=== PATIENT | female | born 1955 | race Caucasian/White ===

== ENCOUNTER 2020-01-12 22:02 | Emergency (ER) | payer MEDICARE, MEDICAID ==
[~2020-01-12] VITALS: Ht 162.6 cm; Wt 100.0 kg
[~2020-01-12 22:02] MED LIST: ASPI-728 PO; BENZ1TAB10 PO; BUPR-93 PO; GABA-531 PO; GLIP5 PO; METF-960 PO; RISP3 PO; ROSU10TA22 PO; TOPI100T37 PO; TRAZ-257 PO
[2020-01-12] MEDS ORDERED: METO25 PO (22:41)
[2020-01-12] MEDS ORDERED: DIPH25TA20 PO (22:41)
[2020-01-12] MEDS ORDERED: CHOL100018 PO (22:41)
[2020-01-12] MEDS ORDERED: INSLAN SQ (22:41)
[2020-01-12] MEDS ORDERED: LISI-660 PO (22:41)
[2020-01-12] MEDS ORDERED: CLON.5 PO (22:41)
[2020-01-12] MEDS ORDERED: OLAN5TAB2 IM (22:41)
[2020-01-12] MEDS ORDERED: TRAZ-257 PO (22:41)
[2020-01-12] MEDS ORDERED: RISP3 PO (22:41)
[2020-01-12] MEDS ORDERED: BUSP10TA23 PO (22:41)
[2020-01-12] MEDS ORDERED: ATOR10TA84 PO (22:41)
[2020-01-12 23:39] LABS: BASOPHILS % (AUTO) 0.4 % (0.0-2.0); EOSINOPHILS % (AUTO) 0.6 % (1.0-6.0); HEMATOCRIT 39.7 % (36-46); HEMOGLOBIN 12.9 g/dL (12.0-16.0); LYMPHOCYTES # (AUTO) 1.2 K/uL (1.0-4.8); LYMPHOCYTES % (AUTO) 14.8 % (22.0-44.0); MEAN CORPUSCULAR HEMOGLOBIN 27.4 pg (26.0-34.0); MEAN CORPUSCULAR HGB CONC 32.4 G/dL (31.0-37.0); MEAN CORPUSCULAR VOLUME 85 fL (80-100); MONOCYTES # (AUTO) 0.6 K/uL (0.1-1.0); NEUTROPHILS % (AUTO) 76.2 % (40.0-70.0); PLATELET COUNT (AUTO) 236 K/uL (150-450); RED CELL DISTRIBUTION WIDTH 14.5 % (11.5-14.5)
[2020-01-12 23:52] LABS: ANION GAP 12 mmol/L (8-16); CALCIUM, TOTAL 8.4 mg/dL (8.8-10.5); CARBON DIOXIDE 23 mmol/L (22-29); CHLORIDE 104 mmol/L (98-107); CREATININE 0.72 mg/dL (0.60-1.30); GLOMERULAR FILTR. RATE CALC > 60 mL/min (>60); GLUCOSE,RANDOM 199 mg/dL (70-110); POTASSIUM 3.7 mmol/L (3.5-5.1); SODIUM SERUM 139 mmol/L (136-145); UREA NITROGEN, BLOOD 11 mg/dL (7-18)
[2020-01-13 00:01] LABS: ALANINE AMINOTRANSFERASE 18 U/L (12-78); ALBUMIN 3.5 g/dL (3.4-5.0); ALKALINE PHOSPHATASE 112 U/L (46-116); ASPARTATE AMINOTRANSFERASE 12 U/L (15-37); BILIRUBIN,TOTAL 0.3 mg/dL (0.1-1.0); TOTAL PROTEIN, SERUM 6.6 g/dL (6.4-8.2)
[2020-01-13 00:56] LABS: APPEARANCE,URINE CLOUDY (CLEAR); GLUCOSE, URINE (UA) NEGATIVE (NEGATIVE); KETONES,URINE >=80 mg/dL (NEGATIVE); LEUKOCYTE ESTERASE ,URINE TRACE (NEGATIVE); NITRATE,URINE NEGATIVE (NEGATIVE); OCCULT BLOOD,URINE NEGATIVE (NEGATIVE); PROTEIN,URINE NEGATIVE (NEGATIVE); UROBILINOGEN,URINE 0.2 mg/dL (<=1.0)
[2020-01-13 00:59] LABS: BILIRUBIN,URINE PRELIM. POSITIVE (NEGATIVE)
[2020-01-13 01:01] LABS: AMPHET/METH SCREEN,URINE NEGATIVE (NEGATIVE); BARBITURATE SCREEN, URINE NEGATIVE (NEGATIVE); BENZODIAZEPINES SCREEN,URINE NEGATIVE (NEGATIVE); CANNABINOID SCREEN,URINE NEGATIVE (NEGATIVE); COCAINE SCREEN,URINE NEGATIVE (NEGATIVE); METHADONE SCREEN, URINE NEGATIVE (NEGATIVE); OPIATE SCREEN,URINE NEGATIVE (NEGATIVE)
[2020-01-13 01:03] LABS: PHENCYCLIDINE SCREEN,URINE NEGATIVE (NEGATIVE)
[2020-01-13 01:11] LABS: BACTERIA,URINE Few /HPF (None Seen); RBC,URINE None Seen /HPF (0-2); SQUAMOUS EPITHELIAL CELL,UR Few /LPF (None Seen); WBC,URINE 0-2 /HPF (0-5); YEAST,URINE None Seen /HPF (None Seen)
[2020-01-13 01:40] VITALS: BP 154/84
[2020-01-13] MEDS ORDERED: LORazepam 2 MG TABLET PO ONE (02:00)
== END 2020-01-13 02:25 | disposition home or self-care (01) ==
LOC: EMS 22:07
DX: F25.9 Schizoaffective disorder, unspecified (principal); F17.210 Nicotine dependence, cigarettes, uncomplicated; F31.9 Bipolar disorder, unspecified; E11.9 Type 2 diabetes mellitus without complications; I10 Essential (primary) hypertension; Z91.018 Allergy to other foods; Z79.84 Long term (current) use of oral hypoglycemic drugs; Z79.899 Other long term (current) drug therapy
CPT/HCPCS: 36415; 80053; 80307; 81001; 85025; 99284; G0480

== ENCOUNTER 2020-01-14 15:43 | Inpatient (IN) | payer MEDICARE, MEDICAID ==
[~2020-01-14] VITALS: Ht 160 cm; Wt 105.3 kg
[~2020-01-14 15:43] MED LIST changes: +ATOR10TA84 PO; +BUSP10TA23 PO; +CHOL100018 PO; +CLON.5 PO; +DIPH25TA20 PO; +GABA-1181 PO; -GABA-531 PO; +INSLAN SQ; +LISI-660 PO; +METO25 PO; +OLAN5TAB2 PO
[2020-01-14] MEDS ORDERED: LORazepam 2 MG/ML VIAL IM ONE (16:30)
[2020-01-14 16:37] LABS: BASOPHILS % (AUTO) 0.5 % (0.0-2.0); EOSINOPHILS % (AUTO) 0.7 % (1.0-6.0); HEMATOCRIT 41.3 % (36-46); HEMOGLOBIN 13.3 g/dL (12.0-16.0); LYMPHOCYTES # (AUTO) 1.1 K/uL (1.0-4.8); MEAN CORPUSCULAR HEMOGLOBIN 27.2 pg (26.0-34.0); MEAN CORPUSCULAR HGB CONC 32.3 G/dL (31.0-37.0); MEAN CORPUSCULAR VOLUME 84 fL (80-100); MONOCYTES # (AUTO) 0.5 K/uL (0.1-1.0); MONOCYTES % (AUTO) 6.5 % (2.0-9.0); NEUTROPHILS # (AUTO) 6.3 K/uL (1.8-7.7); NEUTROPHILS % (AUTO) 78.3 % (40.0-70.0); PLATELET COUNT (AUTO) 254 K/uL (150-450); RED BLOOD CELL COUNT(AUTO) 4.91 MIL/uL (4.00-5.20); RED CELL DISTRIBUTION WIDTH 15.1 % (11.5-14.5)
[2020-01-14 16:46] LABS: ANION GAP 10 mmol/L (8-16); CALCIUM, TOTAL 9.2 mg/dL (8.8-10.5); CARBON DIOXIDE 26 mmol/L (22-29); CHLORIDE 102 mmol/L (98-107); CREATININE 0.84 mg/dL (0.60-1.30); GLOMERULAR FILTR. RATE CALC > 60 mL/min (>60); GLUCOSE,RANDOM 203 mg/dL (70-110); POTASSIUM 4.1 mmol/L (3.5-5.1); SODIUM SERUM 138 mmol/L (136-145); UREA NITROGEN, BLOOD 14 mg/dL (7-18)
[2020-01-14 16:51] LABS: ALANINE AMINOTRANSFERASE 19 U/L (12-78); ALBUMIN 3.5 g/dL (3.4-5.0); ALKALINE PHOSPHATASE 119 U/L (46-116); ASPARTATE AMINOTRANSFERASE 10 U/L (15-37); BILIRUBIN,TOTAL 0.3 mg/dL (0.1-1.0); TOTAL PROTEIN, SERUM 6.6 g/dL (6.4-8.2)
[2020-01-14] MEDS ORDERED: TraZODone HCL 50 MG TABLET PO ONE (17:45)
[2020-01-14 19:47] LABS: APPEARANCE,URINE CLEAR (CLEAR); BILIRUBIN,URINE NEGATIVE (NEGATIVE); GLUCOSE, URINE (UA) NEGATIVE (NEGATIVE); KETONES,URINE >=80 mg/dL (NEGATIVE); LEUKOCYTE ESTERASE ,URINE SMALL (NEGATIVE); NITRATE,URINE NEGATIVE (NEGATIVE); OCCULT BLOOD,URINE NEGATIVE (NEGATIVE); PH,URINE 5.5 (5.0-8.0); PROTEIN,URINE NEGATIVE (NEGATIVE); UROBILINOGEN,URINE 0.2 mg/dL (<=1.0)
[2020-01-14 19:53] LABS: AMPHET/METH SCREEN,URINE NEGATIVE (NEGATIVE); BARBITURATE SCREEN, URINE NEGATIVE (NEGATIVE); BENZODIAZEPINES SCREEN,URINE NEGATIVE (NEGATIVE); CANNABINOID SCREEN,URINE NEGATIVE (NEGATIVE); COCAINE SCREEN,URINE NEGATIVE (NEGATIVE); METHADONE SCREEN, URINE NEGATIVE (NEGATIVE); OPIATE SCREEN,URINE NEGATIVE (NEGATIVE)
[2020-01-14 20:14] LABS: PHENCYCLIDINE SCREEN,URINE NEGATIVE (NEGATIVE)
[2020-01-14 21:04] LABS: RBC,URINE 0-2 /HPF (0-2)
[2020-01-14 21:05] LABS: BACTERIA,URINE Rare /HPF (None Seen); SQUAMOUS EPITHELIAL CELL,UR Rare /LPF (None Seen)
[2020-01-14] MEDS: ZOLPIDEM TARTRATE 10 MG TABLET PO PRN (22:04)
[2020-01-14 23:08] LABS: GLUCOSE,POINT OF CARE 248 MG/DL (70-110)
[2020-01-15] MEDS: LORazepam 2 MG TABLET PO PRN ×2 (02:14→09:24)
[2020-01-15 02:16] VITALS: BP 144/89
[2020-01-15 09:33] VITALS: BP 160/100
[2020-01-15 10:38] VITALS: BP 129/79
[2020-01-15] MEDS ORDERED: RISP2 PO (11:44)
[2020-01-15] MEDS ORDERED: DEXTROSE 50%-WATER 25 GM/50 ML SYRINGE IVP PRN (11:45)
[2020-01-15] MEDS ORDERED: ONDANSETRON HCL 4 MG TABLET PO PRN (11:45)
[2020-01-15] MEDS ORDERED: CloNIDine HCL 0.1 MG TABLET PO PRN (11:45)
[2020-01-15] MEDS ORDERED: NICOTINE 14 MG/24 HOUR PATCH TD PRN (11:45)
[2020-01-15] MEDS ORDERED: DOCUSATE SODIUM 100 MG CAPSULE PO PRN (11:45)
[2020-01-15] MEDS ORDERED: MAGNESIUM HYDROXIDE SUSPENSION 30 ML UDCUP PO PRN (11:45)
[2020-01-15] MEDS ORDERED: PETROLATUM,WHITE 28 GM JELLY TP PRN (11:45)
[2020-01-15] MEDS ORDERED: GuaiFENesin/D-METHORPHAN [SUGAR-FREE] 200-20MG/10 ML SYRUP UDCUP PO PRN (11:45)
[2020-01-15] MEDS ORDERED: MAG HYDROX/AL HYDROX/SIMETH ES 30 ML SUSPENSION UDCUP PO PRN (11:45)
[2020-01-15] MEDS: GlipiZIDE 5 MG TABLET PO SCH (16:19)
[2020-01-15] MEDS: METOPROLOL TARTRATE 25 MG TABLET PO SCH (16:20)
[2020-01-15] MEDS: BusPIRone HCL 10 MG TABLET PO SCH (16:23)
[2020-01-15] MEDS: MetFORMIN HCL 500 MG TABLET PO SCH (16:38)
[2020-01-15 16:42] LABS: CHOL/HDL RATIO 3.2 (3.9-5.7)
[2020-01-15] MEDS: INSULIN LISPRO 100 UNITS/ML SQ PRN ×2 (17:30→20:45)
[2020-01-15] MEDS: TraZODone HCL 100 MG TABLET PO SCH (20:12)
[2020-01-15] MEDS: ATORVASTATIN CALCIUM 10 MG TABLET PO SCH (20:12)
[2020-01-15] MEDS: DIVALPROEX SODIUM 500 MG DR TABLET PO SCH (20:12)
[2020-01-15] MEDS: RisperiDONE 2 MG TABLET PO SCH (20:12)
[2020-01-15] MEDS: INSULIN GLARGINE,HUM.REC.ANLOG 100 UNITS/ML SQ SCH (20:44)
[2020-01-15 21:30] VITALS: BP 142/78
[2020-01-16 05:33] LABS: GLUCOMETER DEV NAME(LOC) 3E.I 2; GLUCOSE,POINT OF CARE 163 MG/DL (70-110)
[2020-01-16] MEDS: MetFORMIN HCL 500 MG TABLET PO SCH ×2 (06:30→16:51)
[2020-01-16] MEDS: GlipiZIDE 5 MG TABLET PO SCH ×2 (06:30→16:51)
[2020-01-16] MEDS: INSULIN LISPRO 100 UNITS/ML SQ PRN ×3 (06:41→21:23)
[2020-01-16 08:27] VITALS: BP 149/84
[2020-01-16] MEDS: CHOLECALCIFEROL (VIT D3) 1,000 UNITS [25 MCG] TABLET PO SCH (08:52)
[2020-01-16] MEDS: RisperiDONE 2 MG TABLET PO SCH ×2 (08:53→20:40)
[2020-01-16] MEDS: ASPIRIN 81 MG CHEWABLE TABLET PO SCH (08:53)
[2020-01-16] MEDS: BusPIRone HCL 10 MG TABLET PO SCH ×3 (08:53→16:51)
[2020-01-16] MEDS: DIVALPROEX SODIUM 500 MG DR TABLET PO SCH ×2 (08:53→20:39)
[2020-01-16] MEDS: METOPROLOL TARTRATE 25 MG TABLET PO SCH ×2 (08:53→16:51)
[2020-01-16] MEDS ORDERED: ROSUVASTATIN CALCIUM 10 MG TABLET PO SCH (09:00)
[2020-01-16 11:42] LABS: GLUCOMETER DEV NAME(LOC) 3EX.; GLUCOSE,POINT OF CARE 137 MG/DL (70-110)
[2020-01-16] MEDS: LORazepam 2 MG TABLET PO PRN (12:24)
[2020-01-16 16:53] LABS: GLUCOMETER DEV NAME(LOC) 3EX.; GLUCOSE,POINT OF CARE 151 MG/DL (70-110)
[2020-01-16 16:58] VITALS: BP 156/97
[2020-01-16] MEDS: QUEtiapine FUMARATE 100 MG TABLET PO PRN (19:09)
[2020-01-16] MEDS: ATORVASTATIN CALCIUM 10 MG TABLET PO SCH (20:39)
[2020-01-16] MEDS: TraZODone HCL 100 MG TABLET PO SCH (20:40)
[2020-01-16 20:45] LABS: GLUCOMETER DEV NAME(LOC) 3EX.; GLUCOSE,POINT OF CARE 145 MG/DL (70-110)
[2020-01-16] MEDS: INSULIN GLARGINE,HUM.REC.ANLOG 100 UNITS/ML SQ SCH (21:21)
[2020-01-16 22:34] VITALS: BP 156/97
[2020-01-17 00:25] VITALS: BP 161/73
[2020-01-17] MEDS: LORazepam 2 MG TABLET PO PRN ×3 (00:27→15:59)
[2020-01-17] MEDS: QUEtiapine FUMARATE 100 MG TABLET PO PRN ×2 (00:27→15:59)
[2020-01-17] MEDS: ZOLPIDEM TARTRATE 10 MG TABLET PO PRN ×2 (00:31→20:39)
[2020-01-17 05:53] LABS: GLUCOMETER DEV NAME(LOC) 3E.I 2; GLUCOSE,POINT OF CARE 97 MG/DL (70-110)
[2020-01-17] MEDS: GlipiZIDE 5 MG TABLET PO SCH ×2 (06:58→17:11)
[2020-01-17] MEDS: MetFORMIN HCL 500 MG TABLET PO SCH ×2 (06:58→17:11)
[2020-01-17 08:00] VITALS: BP 152/80
[2020-01-17] MEDS: CHOLECALCIFEROL (VIT D3) 1,000 UNITS [25 MCG] TABLET PO SCH (08:18)
[2020-01-17] MEDS: DIVALPROEX SODIUM 500 MG DR TABLET PO SCH ×2 (08:19→20:39)
[2020-01-17] MEDS: RisperiDONE 2 MG TABLET PO SCH ×2 (08:19→20:39)
[2020-01-17] MEDS: METOPROLOL TARTRATE 25 MG TABLET PO SCH ×2 (08:19→17:11)
[2020-01-17] MEDS: BusPIRone HCL 10 MG TABLET PO SCH ×3 (08:19→17:10)
[2020-01-17] MEDS: ASPIRIN 81 MG CHEWABLE TABLET PO SCH (08:19)
[2020-01-17 10:34] LABS: GLUCOMETER DEV NAME(LOC) 3EX.; GLUCOSE,POINT OF CARE 138 MG/DL (70-110)
[2020-01-17] MEDS: LOPERAMIDE HCL 2 MG CAPSULE PO PRN (11:01)
[2020-01-17 16:31] VITALS: BP 146/81
[2020-01-17] MEDS: INSULIN LISPRO 100 UNITS/ML SQ PRN (17:21)
[2020-01-17 17:29] LABS: GLUCOMETER DEV NAME(LOC) 3EX.; GLUCOSE,POINT OF CARE 176 MG/DL (70-110)
[2020-01-17] MEDS: TraZODone HCL 100 MG TABLET PO SCH (20:39)
[2020-01-17] MEDS: ATORVASTATIN CALCIUM 10 MG TABLET PO SCH (20:39)
[2020-01-17] MEDS: INSULIN GLARGINE,HUM.REC.ANLOG 100 UNITS/ML SQ SCH (21:00)
[2020-01-17 21:20] LABS: GLUCOMETER DEV NAME(LOC) 3EX.; GLUCOSE,POINT OF CARE 52 MG/DL (70-110)
[2020-01-17 21:20] LABS: GLUCOMETER DEV NAME(LOC) 3EX.; GLUCOSE,POINT OF CARE 76 MG/DL (70-110)
[2020-01-18] MEDS: LORazepam 2 MG TABLET PO PRN ×3 (01:34→14:31)
[2020-01-18] MEDS: ACETAMINOPHEN 325 MG TABLET PO PRN (04:52)
[2020-01-18 05:32] LABS: GLUCOMETER DEV NAME(LOC) 3E.I 2; GLUCOSE,POINT OF CARE 90 MG/DL (70-110)
[2020-01-18] MEDS: GlipiZIDE 5 MG TABLET PO SCH ×2 (06:52→17:28)
[2020-01-18] MEDS: MetFORMIN HCL 500 MG TABLET PO SCH ×2 (06:52→17:28)
[2020-01-18] MEDS: RisperiDONE 2 MG TABLET PO SCH ×2 (08:49→20:53)
[2020-01-18] MEDS: CHOLECALCIFEROL (VIT D3) 1,000 UNITS [25 MCG] TABLET PO SCH (08:50)
[2020-01-18] MEDS: BusPIRone HCL 10 MG TABLET PO SCH ×3 (08:50→17:28)
[2020-01-18] MEDS: ASPIRIN 81 MG CHEWABLE TABLET PO SCH (08:50)
[2020-01-18] MEDS: METOPROLOL TARTRATE 25 MG TABLET PO SCH ×2 (08:50→17:28)
[2020-01-18] MEDS: DIVALPROEX SODIUM 500 MG DR TABLET PO SCH ×2 (08:51→20:53)
[2020-01-18 08:55] VITALS: BP 154/71
[2020-01-18 11:31] LABS: GLUCOMETER DEV NAME(LOC) 3EX.; GLUCOSE,POINT OF CARE 109 MG/DL (70-110)
[2020-01-18] MEDS: INSULIN LISPRO 100 UNITS/ML SQ PRN (11:31)
[2020-01-18 14:28] VITALS: BP 127/73
[2020-01-18] MEDS: LOPERAMIDE HCL 2 MG CAPSULE PO PRN (15:26)
[2020-01-18] MEDS: QUEtiapine FUMARATE 100 MG TABLET PO PRN (15:29)
[2020-01-18 16:00] VITALS: BP 153/78
[2020-01-18 16:36] LABS: GLUCOMETER DEV NAME(LOC) 3EX.; GLUCOSE,POINT OF CARE 109 MG/DL (70-110)
[2020-01-18] MEDS: TraZODone HCL 100 MG TABLET PO SCH (20:53)
[2020-01-18] MEDS: ATORVASTATIN CALCIUM 10 MG TABLET PO SCH (20:53)
[2020-01-18] MEDS ORDERED: INSULIN GLARGINE,HUM.REC.ANLOG 100 UNITS/ML SQ SCH (21:00)
[2020-01-18 21:11] LABS: GLUCOMETER DEV NAME(LOC) 3EX.; GLUCOSE,POINT OF CARE 88 MG/DL (70-110)
[2020-01-18 23:00] VITALS: BP 125/75
[2020-01-18] MEDS: IBUPROFEN 400 MG TABLET PO PRN (23:00)
[2020-01-19] MEDS: LORazepam 2 MG TABLET PO PRN ×3 (01:20→16:59)
[2020-01-19] MEDS: ZOLPIDEM TARTRATE 10 MG TABLET PO PRN (01:20)
[2020-01-19 04:15] VITALS: BP 152/88
[2020-01-19 05:56] LABS: GLUCOMETER DEV NAME(LOC) 3E.I 2; GLUCOSE,POINT OF CARE 81 MG/DL (70-110)
[2020-01-19] MEDS: GlipiZIDE 5 MG TABLET PO SCH ×2 (07:14→17:41)
[2020-01-19] MEDS: MetFORMIN HCL 500 MG TABLET PO SCH ×2 (07:14→17:41)
[2020-01-19] MEDS: ASPIRIN 81 MG CHEWABLE TABLET PO SCH (09:43)
[2020-01-19] MEDS: CHOLECALCIFEROL (VIT D3) 1,000 UNITS [25 MCG] TABLET PO SCH (09:44)
[2020-01-19] MEDS: RisperiDONE 2 MG TABLET PO SCH ×2 (09:44→21:00)
[2020-01-19] MEDS: METOPROLOL TARTRATE 25 MG TABLET PO SCH ×2 (09:45→17:41)
[2020-01-19] MEDS: DIVALPROEX SODIUM 500 MG DR TABLET PO SCH ×2 (09:45→20:59)
[2020-01-19] MEDS: BusPIRone HCL 10 MG TABLET PO SCH ×3 (09:45→17:41)
[2020-01-19 11:26] LABS: GLUCOMETER DEV NAME(LOC) 3EX.; GLUCOSE,POINT OF CARE 90 MG/DL (70-110)
[2020-01-19 11:49] VITALS: BP 109/68
[2020-01-19 16:15] VITALS: BP 156/78
[2020-01-19 16:26] LABS: GLUCOMETER DEV NAME(LOC) 3EX.; GLUCOSE,POINT OF CARE 66 MG/DL (70-110)
[2020-01-19] MEDS: INSULIN LISPRO 100 UNITS/ML SQ PRN ×2 (16:40→21:22)
[2020-01-19 16:48] LABS: GLUCOMETER DEV NAME(LOC) 3EX.; GLUCOSE,POINT OF CARE 90 MG/DL (70-110)
[2020-01-19] MEDS: ATORVASTATIN CALCIUM 10 MG TABLET PO SCH (21:00)
[2020-01-19] MEDS: TraZODone HCL 100 MG TABLET PO SCH (21:00)
[2020-01-19 21:20] LABS: GLUCOMETER DEV NAME(LOC) 3EX.; GLUCOSE,POINT OF CARE 100 MG/DL (70-110)
[2020-01-19] MEDS: IBUPROFEN 400 MG TABLET PO PRN (22:45)
[2020-01-20] MEDS: ZOLPIDEM TARTRATE 10 MG TABLET PO PRN (02:13)
[2020-01-20] MEDS: LORazepam 2 MG TABLET PO PRN ×2 (02:13→10:57)
[2020-01-20 03:58] VITALS: BP 151/73
[2020-01-20 05:54] LABS: GLUCOMETER DEV NAME(LOC) 3E.I 2; GLUCOSE,POINT OF CARE 93 MG/DL (70-110)
[2020-01-20] MEDS: MetFORMIN HCL 500 MG TABLET PO SCH ×2 (06:49→16:56)
[2020-01-20] MEDS: GlipiZIDE 5 MG TABLET PO SCH ×2 (06:49→16:57)
[2020-01-20] MEDS: BusPIRone HCL 10 MG TABLET PO SCH ×3 (09:09→16:57)
[2020-01-20] MEDS: DIVALPROEX SODIUM 500 MG DR TABLET PO SCH ×2 (09:09→20:05)
[2020-01-20] MEDS: METOPROLOL TARTRATE 25 MG TABLET PO SCH ×2 (09:09→16:57)
[2020-01-20] MEDS: RisperiDONE 2 MG TABLET PO SCH ×2 (09:09→20:05)
[2020-01-20] MEDS: ASPIRIN 81 MG CHEWABLE TABLET PO SCH (09:09)
[2020-01-20] MEDS: CHOLECALCIFEROL (VIT D3) 1,000 UNITS [25 MCG] TABLET PO SCH (09:09)
[2020-01-20 09:28] VITALS: BP 142/84
[2020-01-20 11:15] LABS: GLUCOMETER DEV NAME(LOC) 3EX.; GLUCOSE,POINT OF CARE 78 MG/DL (70-110)
[2020-01-20 16:17] VITALS: BP 148/71
[2020-01-20 17:06] LABS: GLUCOMETER DEV NAME(LOC) 3EX.; GLUCOSE,POINT OF CARE 139 MG/DL (70-110)
[2020-01-20] MEDS: ATORVASTATIN CALCIUM 10 MG TABLET PO SCH (20:05)
[2020-01-20] MEDS: TraZODone HCL 100 MG TABLET PO SCH (20:06)
[2020-01-20 20:59] LABS: GLUCOMETER DEV NAME(LOC) 3EX.; GLUCOSE,POINT OF CARE 86 MG/DL (70-110)
[2020-01-21 05:31] LABS: GLUCOMETER DEV NAME(LOC) 3E.I 2; GLUCOSE,POINT OF CARE 99 MG/DL (70-110)
[2020-01-21] MEDS: MetFORMIN HCL 500 MG TABLET PO SCH ×2 (06:41→16:20)
[2020-01-21] MEDS: GlipiZIDE 5 MG TABLET PO SCH ×2 (06:42→16:21)
[2020-01-21 08:00] VITALS: BP 151/73
[2020-01-21] MEDS: CHOLECALCIFEROL (VIT D3) 1,000 UNITS [25 MCG] TABLET PO SCH (08:38)
[2020-01-21] MEDS: METOPROLOL TARTRATE 25 MG TABLET PO SCH ×2 (08:38→16:21)
[2020-01-21] MEDS: DIVALPROEX SODIUM 500 MG DR TABLET PO SCH ×2 (08:39→20:15)
[2020-01-21] MEDS: RisperiDONE 2 MG TABLET PO SCH ×2 (08:39→20:15)
[2020-01-21] MEDS: ASPIRIN 81 MG CHEWABLE TABLET PO SCH (08:39)
[2020-01-21] MEDS: BusPIRone HCL 10 MG TABLET PO SCH ×3 (08:39→16:20)
[2020-01-21 10:44] LABS: GLUCOMETER DEV NAME(LOC) 3EX.; GLUCOSE,POINT OF CARE 94 MG/DL (70-110)
[2020-01-21] MEDS: LORazepam 1 MG TABLET PO PRN ×2 (11:55→22:50)
[2020-01-21 16:22] VITALS: BP 168/84
[2020-01-21 17:22] LABS: GLUCOMETER DEV NAME(LOC) 3EX.; GLUCOSE,POINT OF CARE 105 MG/DL (70-110)
[2020-01-21] MEDS: TraZODone HCL 100 MG TABLET PO SCH (20:15)
[2020-01-21] MEDS: ATORVASTATIN CALCIUM 10 MG TABLET PO SCH (20:15)
[2020-01-21 21:13] LABS: GLUCOMETER DEV NAME(LOC) 3EX.; GLUCOSE,POINT OF CARE 81 MG/DL (70-110)
[2020-01-21 21:18] VITALS: BP 149/78
[2020-01-21] MEDS: ZOLPIDEM TARTRATE 10 MG TABLET PO PRN (22:50)
[2020-01-22 00:41] VITALS: BP 151/90
[2020-01-22 06:05] LABS: GLUCOMETER DEV NAME(LOC) 3E.I 2; GLUCOSE,POINT OF CARE 99 MG/DL (70-110)
[2020-01-22] MEDS: MetFORMIN HCL 500 MG TABLET PO SCH ×2 (06:31→16:31)
[2020-01-22] MEDS: GlipiZIDE 5 MG TABLET PO SCH ×2 (06:32→16:31)
[2020-01-22] MEDS: ASPIRIN 81 MG CHEWABLE TABLET PO SCH (08:01)
[2020-01-22] MEDS: METOPROLOL TARTRATE 25 MG TABLET PO SCH ×2 (08:01→16:30)
[2020-01-22] MEDS: BusPIRone HCL 10 MG TABLET PO SCH ×3 (08:01→16:30)
[2020-01-22] MEDS: DIVALPROEX SODIUM 500 MG DR TABLET PO SCH ×2 (08:02→20:39)
[2020-01-22] MEDS: CHOLECALCIFEROL (VIT D3) 1,000 UNITS [25 MCG] TABLET PO SCH (08:02)
[2020-01-22] MEDS: AmLODIPine BESYLATE 5 MG TABLET PO SCH (08:03)
[2020-01-22] MEDS: RisperiDONE 2 MG TABLET PO SCH ×2 (08:03→20:40)
[2020-01-22] MEDS: LORazepam 1 MG TABLET PO PRN ×2 (08:03→14:11)
[2020-01-22 08:09] VITALS: BP 152/91
[2020-01-22 11:21] LABS: GLUCOMETER DEV NAME(LOC) 3EX.; GLUCOSE,POINT OF CARE 145 MG/DL (70-110)
[2020-01-22] MEDS: INSULIN LISPRO 100 UNITS/ML SQ PRN ×2 (11:46→16:52)
[2020-01-22 16:41] VITALS: BP 154/90
[2020-01-22 16:52] LABS: GLUCOMETER DEV NAME(LOC) 3EX.; GLUCOSE,POINT OF CARE 148 MG/DL (70-110)
[2020-01-22] MEDS: ATORVASTATIN CALCIUM 10 MG TABLET PO SCH (20:39)
[2020-01-22] MEDS: TraZODone HCL 100 MG TABLET PO SCH (20:39)
[2020-01-22 21:02] LABS: GLUCOMETER DEV NAME(LOC) 3EX.; GLUCOSE,POINT OF CARE 103 MG/DL (70-110)
[2020-01-23] VITALS (7 sets, daily range): BP systolic 142–164; BP diastolic 73–86
[2020-01-23] MEDS: ZOLPIDEM TARTRATE 10 MG TABLET PO PRN (00:19)
[2020-01-23] MEDS: IBUPROFEN 400 MG TABLET PO PRN ×2 (00:20→18:04)
[2020-01-23] MEDS: LORazepam 1 MG TABLET PO PRN ×3 (01:56→15:23)
[2020-01-23] MEDS: QUEtiapine FUMARATE 100 MG TABLET PO PRN ×2 (01:56→18:20)
[2020-01-23 05:35] LABS: GLUCOMETER DEV NAME(LOC) 3E.I 2; GLUCOSE,POINT OF CARE 112 MG/DL (70-110)
[2020-01-23] MEDS: GlipiZIDE 5 MG TABLET PO SCH ×2 (06:40→17:01)
[2020-01-23] MEDS: MetFORMIN HCL 500 MG TABLET PO SCH ×2 (06:40→17:00)
[2020-01-23] MEDS: DIVALPROEX SODIUM 500 MG DR TABLET PO SCH ×2 (08:25→20:31)
[2020-01-23] MEDS: ASPIRIN 81 MG CHEWABLE TABLET PO SCH (08:25)
[2020-01-23] MEDS: CHOLECALCIFEROL (VIT D3) 1,000 UNITS [25 MCG] TABLET PO SCH (08:25)
[2020-01-23] MEDS: AmLODIPine BESYLATE 5 MG TABLET PO SCH (08:27)
[2020-01-23] MEDS: RisperiDONE 2 MG TABLET PO SCH ×2 (08:27→20:31)
[2020-01-23] MEDS: METOPROLOL TARTRATE 25 MG TABLET PO SCH ×2 (08:27→17:01)
[2020-01-23] MEDS: BusPIRone HCL 10 MG TABLET PO SCH ×3 (08:28→17:01)
[2020-01-23 11:27] LABS: GLUCOMETER DEV NAME(LOC) 3EX.; GLUCOSE,POINT OF CARE 137 MG/DL (70-110)
[2020-01-23 16:29] LABS: GLUCOMETER DEV NAME(LOC) 3EX.; GLUCOSE,POINT OF CARE 130 MG/DL (70-110)
[2020-01-23] MEDS: ATORVASTATIN CALCIUM 10 MG TABLET PO SCH (20:30)
[2020-01-23] MEDS: TraZODone HCL 100 MG TABLET PO SCH (20:31)
[2020-01-23 20:51] LABS: GLUCOMETER DEV NAME(LOC) 3EX.; GLUCOSE,POINT OF CARE 103 MG/DL (70-110)
[2020-01-24 05:41] LABS: GLUCOMETER DEV NAME(LOC) 3E.I 2; GLUCOSE,POINT OF CARE 91 MG/DL (70-110)
[2020-01-24 06:22] VITALS: BP 144/80
[2020-01-24] MEDS: LORazepam 1 MG TABLET PO PRN ×2 (06:26→17:47)
[2020-01-24] MEDS: IBUPROFEN 400 MG TABLET PO PRN ×2 (06:26→17:47)
[2020-01-24] MEDS: GlipiZIDE 5 MG TABLET PO SCH ×2 (06:36→16:51)
[2020-01-24] MEDS: MetFORMIN HCL 500 MG TABLET PO SCH ×2 (06:36→16:50)
[2020-01-24] MEDS: CHOLECALCIFEROL (VIT D3) 1,000 UNITS [25 MCG] TABLET PO SCH (08:53)
[2020-01-24] MEDS: DIVALPROEX SODIUM 500 MG DR TABLET PO SCH ×2 (08:53→20:28)
[2020-01-24] MEDS: ASPIRIN 81 MG CHEWABLE TABLET PO SCH (08:53)
[2020-01-24] MEDS: RisperiDONE 2 MG TABLET PO SCH ×2 (08:54→20:29)
[2020-01-24] MEDS: AmLODIPine BESYLATE 5 MG TABLET PO SCH (08:55)
[2020-01-24] MEDS: METOPROLOL TARTRATE 25 MG TABLET PO SCH ×2 (08:56→16:50)
[2020-01-24] MEDS: BusPIRone HCL 10 MG TABLET PO SCH ×3 (08:56→16:50)
[2020-01-24 09:00] VITALS: BP 152/68
[2020-01-24] MEDS: QUEtiapine FUMARATE 100 MG TABLET PO PRN ×2 (09:18→15:26)
[2020-01-24] MEDS: INSULIN LISPRO 100 UNITS/ML SQ PRN (12:05)
[2020-01-24 12:10] LABS: GLUCOMETER DEV NAME(LOC) 3EX.; GLUCOSE,POINT OF CARE 122 MG/DL (70-110)
[2020-01-24 16:44] VITALS: BP 96/57
[2020-01-24 17:01] LABS: GLUCOMETER DEV NAME(LOC) 3EX.; GLUCOSE,POINT OF CARE 119 MG/DL (70-110)
[2020-01-24 17:47] VITALS: BP 106/62
[2020-01-24 18:47] VITALS: BP 102/64
[2020-01-24] MEDS: ATORVASTATIN CALCIUM 10 MG TABLET PO SCH (20:29)
[2020-01-24] MEDS: TraZODone HCL 100 MG TABLET PO SCH (20:33)
[2020-01-24 20:50] LABS: GLUCOMETER DEV NAME(LOC) 3EX.; GLUCOSE,POINT OF CARE 89 MG/DL (70-110)
[2020-01-25 01:39] VITALS: BP 123/76
[2020-01-25] MEDS: LORazepam 1 MG TABLET PO PRN ×4 (01:39→23:00)
[2020-01-25] MEDS: IBUPROFEN 400 MG TABLET PO PRN ×2 (04:59→05:14)
[2020-01-25 05:42] LABS: GLUCOMETER DEV NAME(LOC) 3E.I 2; GLUCOSE,POINT OF CARE 98 MG/DL (70-110)
[2020-01-25] MEDS: GlipiZIDE 5 MG TABLET PO SCH ×2 (07:04→16:44)
[2020-01-25] MEDS: MetFORMIN HCL 500 MG TABLET PO SCH ×2 (07:04→16:44)
[2020-01-25 08:00] VITALS: BP 167/81
[2020-01-25] MEDS: CHOLECALCIFEROL (VIT D3) 1,000 UNITS [25 MCG] TABLET PO SCH (08:12)
[2020-01-25] MEDS: RisperiDONE 2 MG TABLET PO SCH ×2 (08:13→20:26)
[2020-01-25] MEDS: METOPROLOL TARTRATE 25 MG TABLET PO SCH ×2 (08:13→16:44)
[2020-01-25] MEDS: DIVALPROEX SODIUM 500 MG DR TABLET PO SCH ×2 (08:13→20:25)
[2020-01-25] MEDS: AmLODIPine BESYLATE 5 MG TABLET PO SCH (08:13)
[2020-01-25] MEDS: ASPIRIN 81 MG CHEWABLE TABLET PO SCH (08:13)
[2020-01-25] MEDS: BusPIRone HCL 10 MG TABLET PO SCH ×3 (08:13→16:45)
[2020-01-25 11:47] LABS: GLUCOMETER DEV NAME(LOC) 3EX.; GLUCOSE,POINT OF CARE 93 MG/DL (70-110)
[2020-01-25] MEDS: ALBUTEROL SULFATE HFA 90 MCG/PUFF 8 GM INHALER IH PRN (14:22)
[2020-01-25 16:02] VITALS: BP 123/82
[2020-01-25 16:50] LABS: GLUCOMETER DEV NAME(LOC) 3EX.; GLUCOSE,POINT OF CARE 115 MG/DL (70-110)
[2020-01-25] MEDS: TraZODone HCL 100 MG TABLET PO SCH (20:25)
[2020-01-25] MEDS: ATORVASTATIN CALCIUM 10 MG TABLET PO SCH (20:26)
[2020-01-25 20:31] LABS: GLUCOMETER DEV NAME(LOC) 3EX.; GLUCOSE,POINT OF CARE 111 MG/DL (70-110)
[2020-01-25 23:50] VITALS: BP 136/68
[2020-01-25] MEDS: ZOLPIDEM TARTRATE 10 MG TABLET PO PRN (23:55)
[2020-01-26 01:03] VITALS: BP 138/68
[2020-01-26 06:13] LABS: GLUCOMETER DEV NAME(LOC) 3E.I 2; GLUCOSE,POINT OF CARE 94 MG/DL (70-110)
[2020-01-26] MEDS: MetFORMIN HCL 500 MG TABLET PO SCH ×2 (06:46→17:16)
[2020-01-26] MEDS: GlipiZIDE 5 MG TABLET PO SCH ×2 (06:46→16:40)
[2020-01-26 11:45] VITALS: BP 153/89
[2020-01-26] MEDS: AmLODIPine BESYLATE 5 MG TABLET PO SCH (11:50)
[2020-01-26] MEDS: CHOLECALCIFEROL (VIT D3) 1,000 UNITS [25 MCG] TABLET PO SCH (11:50)
[2020-01-26] MEDS: BusPIRone HCL 10 MG TABLET PO SCH ×3 (11:50→16:40)
[2020-01-26] MEDS: ASPIRIN 81 MG CHEWABLE TABLET PO SCH (11:50)
[2020-01-26] MEDS: METOPROLOL TARTRATE 25 MG TABLET PO SCH ×2 (11:51→16:40)
[2020-01-26] MEDS: RisperiDONE 2 MG TABLET PO SCH ×2 (11:51→20:15)
[2020-01-26] MEDS: DIVALPROEX SODIUM 500 MG DR TABLET PO SCH ×2 (11:51→20:14)
[2020-01-26] MEDS: ALBUTEROL SULFATE HFA 90 MCG/PUFF 8 GM INHALER IH PRN (11:52)
[2020-01-26 12:00] LABS: GLUCOMETER DEV NAME(LOC) 3EX.; GLUCOSE,POINT OF CARE 84 MG/DL (70-110)
[2020-01-26] MEDS: LORazepam 1 MG TABLET PO PRN ×2 (12:20→18:36)
[2020-01-26] MEDS: INSULIN LISPRO 100 UNITS/ML SQ PRN (12:23)
[2020-01-26] MEDS: QUEtiapine FUMARATE 100 MG TABLET PO PRN ×2 (15:47→20:31)
[2020-01-26 16:05] VITALS: BP 154/76
[2020-01-26 16:07] LABS: GLUCOMETER DEV NAME(LOC) 3EX.; GLUCOSE,POINT OF CARE 136 MG/DL (70-110)
[2020-01-26 18:36] VITALS: BP 146/78
[2020-01-26] MEDS: IBUPROFEN 400 MG TABLET PO PRN (18:36)
[2020-01-26] MEDS: TraZODone HCL 100 MG TABLET PO SCH (20:14)
[2020-01-26] MEDS: ATORVASTATIN CALCIUM 10 MG TABLET PO SCH (20:14)
[2020-01-26 20:34] LABS: GLUCOMETER DEV NAME(LOC) 3EX.; GLUCOSE,POINT OF CARE 71 MG/DL (70-110)
[2020-01-27 05:35] LABS: GLUCOMETER DEV NAME(LOC) 3E.I 2; GLUCOSE,POINT OF CARE 89 MG/DL (70-110)
[2020-01-27] MEDS: MetFORMIN HCL 500 MG TABLET PO SCH ×2 (06:55→17:20)
[2020-01-27] MEDS: GlipiZIDE 5 MG TABLET PO SCH ×2 (06:55→15:56)
[2020-01-27] MEDS: LORazepam 1 MG TABLET PO PRN ×2 (06:57→17:20)
[2020-01-27] MEDS: ALBUTEROL SULFATE HFA 90 MCG/PUFF 8 GM INHALER IH PRN ×2 (06:57→16:13)
[2020-01-27] MEDS: CHOLECALCIFEROL (VIT D3) 1,000 UNITS [25 MCG] TABLET PO SCH (08:21)
[2020-01-27] MEDS: RisperiDONE 2 MG TABLET PO SCH ×2 (08:21→21:06)
[2020-01-27] MEDS: ASPIRIN 81 MG CHEWABLE TABLET PO SCH (08:21)
[2020-01-27] MEDS: AmLODIPine BESYLATE 5 MG TABLET PO SCH (08:21)
[2020-01-27] MEDS: DIVALPROEX SODIUM 500 MG DR TABLET PO SCH ×2 (08:22→21:05)
[2020-01-27] MEDS: METOPROLOL TARTRATE 25 MG TABLET PO SCH ×2 (08:22→15:56)
[2020-01-27] MEDS: BusPIRone HCL 10 MG TABLET PO SCH ×3 (08:22→15:56)
[2020-01-27 11:29] LABS: GLUCOMETER DEV NAME(LOC) 3EX.; GLUCOSE,POINT OF CARE 103 MG/DL (70-110)
[2020-01-27] MEDS: QUEtiapine FUMARATE 100 MG TABLET PO PRN ×3 (11:40→22:11)
[2020-01-27 13:38] VITALS: BP 138/68
[2020-01-27 16:17] LABS: GLUCOMETER DEV NAME(LOC) 3EX.; GLUCOSE,POINT OF CARE 84 MG/DL (70-110)
[2020-01-27 16:51] VITALS: BP 141/70
[2020-01-27] MEDS: ATORVASTATIN CALCIUM 10 MG TABLET PO SCH (21:06)
[2020-01-27] MEDS: TraZODone HCL 100 MG TABLET PO SCH (21:06)
[2020-01-27 22:10] LABS: GLUCOMETER DEV NAME(LOC) 3EX.; GLUCOSE,POINT OF CARE 83 MG/DL (70-110)
[2020-01-28 05:42] LABS: GLUCOMETER DEV NAME(LOC) 3E.I 2; GLUCOSE,POINT OF CARE 107 MG/DL (70-110)
[2020-01-28] MEDS: MetFORMIN HCL 500 MG TABLET PO SCH ×2 (06:51→17:32)
[2020-01-28] MEDS: GlipiZIDE 5 MG TABLET PO SCH ×2 (06:52→17:01)
[2020-01-28] MEDS: CHOLECALCIFEROL (VIT D3) 1,000 UNITS [25 MCG] TABLET PO SCH (08:13)
[2020-01-28] MEDS: LORazepam 1 MG TABLET PO PRN ×2 (08:13→19:25)
[2020-01-28] MEDS: ALBUTEROL SULFATE HFA 90 MCG/PUFF 8 GM INHALER IH PRN ×2 (08:13→17:34)
[2020-01-28] MEDS: ASPIRIN 81 MG CHEWABLE TABLET PO SCH (08:13)
[2020-01-28] MEDS: RisperiDONE 2 MG TABLET PO SCH ×2 (08:13→20:18)
[2020-01-28] MEDS: AmLODIPine BESYLATE 5 MG TABLET PO SCH (08:13)
[2020-01-28] MEDS: METOPROLOL TARTRATE 25 MG TABLET PO SCH ×2 (08:14→17:01)
[2020-01-28] MEDS: DIVALPROEX SODIUM 500 MG DR TABLET PO SCH ×2 (08:14→20:18)
[2020-01-28] MEDS: BusPIRone HCL 10 MG TABLET PO SCH ×3 (08:14→17:01)
[2020-01-28 08:30] VITALS: BP 157/85
[2020-01-28 08:54] VITALS: BP 128/65
[2020-01-28 12:01] LABS: GLUCOMETER DEV NAME(LOC) 3EX.; GLUCOSE,POINT OF CARE 131 MG/DL (70-110)
[2020-01-28] MEDS: INSULIN LISPRO 100 UNITS/ML SQ PRN (12:10)
[2020-01-28] MEDS: QUEtiapine FUMARATE 100 MG TABLET PO PRN ×2 (12:17→17:01)
[2020-01-28 16:25] VITALS: BP 126/65
[2020-01-28 17:14] LABS: GLUCOMETER DEV NAME(LOC) 3EX.; GLUCOSE,POINT OF CARE 92 MG/DL (70-110)
[2020-01-28] MEDS: TraZODone HCL 100 MG TABLET PO SCH (20:18)
[2020-01-28] MEDS: ATORVASTATIN CALCIUM 10 MG TABLET PO SCH (20:18)
[2020-01-28 20:54] LABS: GLUCOMETER DEV NAME(LOC) 3EX.; GLUCOSE,POINT OF CARE 89 MG/DL (70-110)
[2020-01-29 05:59] LABS: GLUCOMETER DEV NAME(LOC) 3E.I 2; GLUCOSE,POINT OF CARE 82 MG/DL (70-110)
[2020-01-29] MEDS: GlipiZIDE 5 MG TABLET PO SCH ×2 (06:54→16:01)
[2020-01-29] MEDS: MetFORMIN HCL 500 MG TABLET PO SCH ×2 (07:04→16:30)
[2020-01-29 09:30] VITALS: BP 153/104
[2020-01-29] MEDS: LORazepam 1 MG TABLET PO PRN ×2 (09:32→19:18)
[2020-01-29] MEDS: QUEtiapine FUMARATE 100 MG TABLET PO PRN ×2 (09:32→13:33)
[2020-01-29] MEDS: DIVALPROEX SODIUM 500 MG DR TABLET PO SCH ×2 (09:32→20:16)
[2020-01-29] MEDS: BusPIRone HCL 10 MG TABLET PO SCH ×3 (09:32→16:01)
[2020-01-29] MEDS: ASPIRIN 81 MG CHEWABLE TABLET PO SCH (09:33)
[2020-01-29] MEDS: RisperiDONE 2 MG TABLET PO SCH ×2 (09:33→20:15)
[2020-01-29] MEDS: METOPROLOL TARTRATE 25 MG TABLET PO SCH ×2 (09:33→16:00)
[2020-01-29] MEDS: AmLODIPine BESYLATE 5 MG TABLET PO SCH (09:33)
[2020-01-29] MEDS: CHOLECALCIFEROL (VIT D3) 1,000 UNITS [25 MCG] TABLET PO SCH (09:33)
[2020-01-29] MEDS: ALBUTEROL SULFATE HFA 90 MCG/PUFF 8 GM INHALER IH PRN ×2 (09:41→16:03)
[2020-01-29 11:17] LABS: GLUCOMETER DEV NAME(LOC) 3EX.; GLUCOSE,POINT OF CARE 119 MG/DL (70-110)
[2020-01-29] MEDS: INSULIN LISPRO 100 UNITS/ML SQ PRN (11:36)
[2020-01-29 16:04] VITALS: BP 145/91
[2020-01-29 17:06] LABS: GLUCOMETER DEV NAME(LOC) 3EX.; GLUCOSE,POINT OF CARE 90 MG/DL (70-110)
[2020-01-29] MEDS: IBUPROFEN 400 MG TABLET PO PRN (19:19)
[2020-01-29] MEDS: TraZODone HCL 100 MG TABLET PO SCH (20:16)
[2020-01-29] MEDS: ATORVASTATIN CALCIUM 10 MG TABLET PO SCH (20:16)
[2020-01-29 20:33] LABS: GLUCOMETER DEV NAME(LOC) 3EX.; GLUCOSE,POINT OF CARE 139 MG/DL (70-110)
[2020-01-30 00:04] VITALS: BP 163/68
[2020-01-30] MEDS: ZOLPIDEM TARTRATE 10 MG TABLET PO PRN (00:04)
[2020-01-30] MEDS: QUEtiapine FUMARATE 100 MG TABLET PO PRN ×2 (00:11→18:00)
[2020-01-30] MEDS: ACETAMINOPHEN 325 MG TABLET PO PRN (00:22)
[2020-01-30 05:34] LABS: GLUCOMETER DEV NAME(LOC) 3E.I 2; GLUCOSE,POINT OF CARE 130 MG/DL (70-110)
[2020-01-30] MEDS: GlipiZIDE 5 MG TABLET PO SCH ×2 (06:53→16:39)
[2020-01-30] MEDS: MetFORMIN HCL 500 MG TABLET PO SCH ×2 (06:59→16:41)
[2020-01-30] MEDS: BusPIRone HCL 10 MG TABLET PO SCH ×3 (08:52→16:39)
[2020-01-30] MEDS: CHOLECALCIFEROL (VIT D3) 1,000 UNITS [25 MCG] TABLET PO SCH (08:52)
[2020-01-30] MEDS: METOPROLOL TARTRATE 25 MG TABLET PO SCH ×2 (08:52→16:40)
[2020-01-30] MEDS: AmLODIPine BESYLATE 5 MG TABLET PO SCH (08:53)
[2020-01-30] MEDS: ASPIRIN 81 MG CHEWABLE TABLET PO SCH (08:53)
[2020-01-30] MEDS: DIVALPROEX SODIUM 500 MG DR TABLET PO SCH ×2 (08:53→20:08)
[2020-01-30] MEDS: RisperiDONE 2 MG TABLET PO SCH ×2 (08:54→20:17)
[2020-01-30 09:07] VITALS: BP 163/83
[2020-01-30 11:29] LABS: GLUCOMETER DEV NAME(LOC) 3EX.; GLUCOSE,POINT OF CARE 125 MG/DL (70-110)
[2020-01-30] MEDS: LORazepam 1 MG TABLET PO PRN (14:31)
[2020-01-30 16:12] VITALS: BP 127/71
[2020-01-30 17:05] LABS: GLUCOMETER DEV NAME(LOC) 3EX.; GLUCOSE,POINT OF CARE 115 MG/DL (70-110)
[2020-01-30] MEDS: ATORVASTATIN CALCIUM 10 MG TABLET PO SCH (20:08)
[2020-01-30] MEDS: TraZODone HCL 100 MG TABLET PO SCH (20:08)
[2020-01-30] MEDS: INSULIN LISPRO 100 UNITS/ML SQ PRN (20:41)
[2020-01-30 20:46] LABS: GLUCOMETER DEV NAME(LOC) 3EX.; GLUCOSE,POINT OF CARE 160 MG/DL (70-110)
[2020-01-31] MEDS: ZOLPIDEM TARTRATE 10 MG TABLET PO PRN ×2 (00:55→20:11)
[2020-01-31] MEDS: LORazepam 1 MG TABLET PO PRN ×2 (00:55→16:06)
[2020-01-31] MEDS: QUEtiapine FUMARATE 100 MG TABLET PO PRN (00:56)
[2020-01-31 05:31] LABS: GLUCOMETER DEV NAME(LOC) 3E.I 2; GLUCOSE,POINT OF CARE 92 MG/DL (70-110)
[2020-01-31] MEDS: GlipiZIDE 5 MG TABLET PO SCH ×2 (07:20→16:04)
[2020-01-31] MEDS: MetFORMIN HCL 500 MG TABLET PO SCH ×2 (07:20→16:45)
[2020-01-31 08:10] VITALS: BP 169/95
[2020-01-31] MEDS: CHOLECALCIFEROL (VIT D3) 1,000 UNITS [25 MCG] TABLET PO SCH (08:33)
[2020-01-31] MEDS: METOPROLOL TARTRATE 25 MG TABLET PO SCH ×2 (08:34→16:04)
[2020-01-31] MEDS: DIVALPROEX SODIUM 500 MG DR TABLET PO SCH ×2 (08:34→20:11)
[2020-01-31] MEDS: AmLODIPine BESYLATE 5 MG TABLET PO SCH (08:34)
[2020-01-31] MEDS: BusPIRone HCL 10 MG TABLET PO SCH ×3 (08:34→16:04)
[2020-01-31] MEDS: RisperiDONE 2 MG TABLET PO SCH ×2 (08:34→20:12)
[2020-01-31] MEDS: ASPIRIN 81 MG CHEWABLE TABLET PO SCH (08:34)
[2020-01-31 11:12] LABS: GLUCOMETER DEV NAME(LOC) 3EX.; GLUCOSE,POINT OF CARE 132 MG/DL (70-110)
[2020-01-31 16:04] VITALS: BP 152/86
[2020-01-31] MEDS: ALBUTEROL SULFATE HFA 90 MCG/PUFF 8 GM INHALER IH PRN (17:12)
[2020-01-31 17:28] LABS: GLUCOMETER DEV NAME(LOC) 3EX.; GLUCOSE,POINT OF CARE 136 MG/DL (70-110)
[2020-01-31] MEDS: ATORVASTATIN CALCIUM 10 MG TABLET PO SCH (20:11)
[2020-01-31] MEDS: TraZODone HCL 100 MG TABLET PO SCH (20:12)
[2020-01-31 21:29] LABS: GLUCOMETER DEV NAME(LOC) 3EX.; GLUCOSE,POINT OF CARE 132 MG/DL (70-110)
[2020-02-01 00:30] VITALS: BP 153/90
[2020-02-01] MEDS: LORazepam 1 MG TABLET PO PRN ×3 (00:48→19:14)
[2020-02-01 05:28] LABS: GLUCOMETER DEV NAME(LOC) 3E.I 2; GLUCOSE,POINT OF CARE 132 MG/DL (70-110)
[2020-02-01] MEDS: MetFORMIN HCL 500 MG TABLET PO SCH ×2 (06:50→17:58)
[2020-02-01] MEDS: GlipiZIDE 5 MG TABLET PO SCH ×2 (06:52→15:56)
[2020-02-01] MEDS: CHOLECALCIFEROL (VIT D3) 1,000 UNITS [25 MCG] TABLET PO SCH (08:51)
[2020-02-01] MEDS: RisperiDONE 2 MG TABLET PO SCH ×2 (08:52→20:07)
[2020-02-01] MEDS: AmLODIPine BESYLATE 5 MG TABLET PO SCH (08:52)
[2020-02-01] MEDS: ASPIRIN 81 MG CHEWABLE TABLET PO SCH (08:52)
[2020-02-01] MEDS: BusPIRone HCL 10 MG TABLET PO SCH ×3 (08:53→15:56)
[2020-02-01] MEDS: METOPROLOL TARTRATE 25 MG TABLET PO SCH ×2 (08:53→15:56)
[2020-02-01] MEDS: DIVALPROEX SODIUM 500 MG DR TABLET PO SCH ×2 (08:53→20:38)
[2020-02-01 10:24] VITALS: BP 149/85
[2020-02-01 11:37] LABS: GLUCOMETER DEV NAME(LOC) 3EX.; GLUCOSE,POINT OF CARE 122 MG/DL (70-110)
[2020-02-01] MEDS: QUEtiapine FUMARATE 100 MG TABLET PO PRN (15:56)
[2020-02-01 16:06] LABS: GLUCOMETER DEV NAME(LOC) 3EX.; GLUCOSE,POINT OF CARE 143 MG/DL (70-110)
[2020-02-01] MEDS: ALBUTEROL SULFATE HFA 90 MCG/PUFF 8 GM INHALER IH PRN (16:10)
[2020-02-01 16:20] VITALS: BP 165/92
[2020-02-01] MEDS: INSULIN LISPRO 100 UNITS/ML SQ PRN (17:29)
[2020-02-01] MEDS: ATORVASTATIN CALCIUM 10 MG TABLET PO SCH (20:07)
[2020-02-01] MEDS: TraZODone HCL 100 MG TABLET PO SCH (20:08)
[2020-02-01 20:26] LABS: GLUCOMETER DEV NAME(LOC) 3EX.; GLUCOSE,POINT OF CARE 102 MG/DL (70-110)
[2020-02-02] MEDS: QUEtiapine FUMARATE 100 MG TABLET PO PRN ×3 (03:00→23:38)
[2020-02-02] MEDS: LORazepam 1 MG TABLET PO PRN ×4 (03:00→23:39)
[2020-02-02 03:58] VITALS: BP 134/88
[2020-02-02 05:51] LABS: GLUCOMETER DEV NAME(LOC) 3E.I 2; GLUCOSE,POINT OF CARE 99 MG/DL (70-110)
[2020-02-02] MEDS: GlipiZIDE 5 MG TABLET PO SCH ×2 (07:11→16:07)
[2020-02-02] MEDS: MetFORMIN HCL 500 MG TABLET PO SCH ×2 (07:11→17:10)
[2020-02-02 09:20] VITALS: BP 152/74
[2020-02-02] MEDS: DIVALPROEX SODIUM 500 MG DR TABLET PO SCH ×2 (09:27→20:45)
[2020-02-02] MEDS: ASPIRIN 81 MG CHEWABLE TABLET PO SCH (09:28)
[2020-02-02] MEDS: RisperiDONE 2 MG TABLET PO SCH ×2 (09:28→20:45)
[2020-02-02] MEDS: AmLODIPine BESYLATE 5 MG TABLET PO SCH (09:28)
[2020-02-02] MEDS: METOPROLOL TARTRATE 25 MG TABLET PO SCH ×2 (09:29→16:07)
[2020-02-02] MEDS: BusPIRone HCL 10 MG TABLET PO SCH ×3 (09:29→16:06)
[2020-02-02] MEDS: CHOLECALCIFEROL (VIT D3) 1,000 UNITS [25 MCG] TABLET PO SCH (09:29)
[2020-02-02 11:05] LABS: GLUCOMETER DEV NAME(LOC) 3EX.; GLUCOSE,POINT OF CARE 117 MG/DL (70-110)
[2020-02-02] MEDS: INSULIN LISPRO 100 UNITS/ML SQ PRN (13:55)
[2020-02-02 16:03] VITALS: BP 141/81
[2020-02-02 17:25] LABS: GLUCOMETER DEV NAME(LOC) 3EX.; GLUCOSE,POINT OF CARE 103 MG/DL (70-110)
[2020-02-02] MEDS: ATORVASTATIN CALCIUM 10 MG TABLET PO SCH (20:45)
[2020-02-02] MEDS: TraZODone HCL 100 MG TABLET PO SCH (20:46)
[2020-02-02 21:09] LABS: GLUCOMETER DEV NAME(LOC) 3EX.; GLUCOSE,POINT OF CARE 82 MG/DL (70-110)
[2020-02-02] MEDS: ZOLPIDEM TARTRATE 10 MG TABLET PO PRN (23:39)
[2020-02-03 01:40] VITALS: BP 144/94
[2020-02-03 05:23] LABS: GLUCOMETER DEV NAME(LOC) 3E.I 2; GLUCOSE,POINT OF CARE 78 MG/DL (70-110)
[2020-02-03] MEDS: GlipiZIDE 5 MG TABLET PO SCH ×2 (06:58→16:45)
[2020-02-03] MEDS: MetFORMIN HCL 500 MG TABLET PO SCH ×2 (06:58→16:43)
[2020-02-03] MEDS: ALBUTEROL SULFATE HFA 90 MCG/PUFF 8 GM INHALER IH PRN (08:17)
[2020-02-03] MEDS: CHOLECALCIFEROL (VIT D3) 1,000 UNITS [25 MCG] TABLET PO SCH (08:17)
[2020-02-03] MEDS: LORazepam 1 MG TABLET PO PRN ×2 (08:17→22:41)
[2020-02-03] MEDS: ASPIRIN 81 MG CHEWABLE TABLET PO SCH (08:17)
[2020-02-03] MEDS: RisperiDONE 2 MG TABLET PO SCH ×2 (08:17→20:17)
[2020-02-03] MEDS: DIVALPROEX SODIUM 500 MG DR TABLET PO SCH ×2 (08:17→20:16)
[2020-02-03] MEDS: AmLODIPine BESYLATE 5 MG TABLET PO SCH (08:17)
[2020-02-03] MEDS: BusPIRone HCL 10 MG TABLET PO SCH ×3 (08:17→16:45)
[2020-02-03] MEDS: METOPROLOL TARTRATE 25 MG TABLET PO SCH ×2 (08:17→16:45)
[2020-02-03 08:23] VITALS: BP 142/75
[2020-02-03 11:27] LABS: GLUCOMETER DEV NAME(LOC) 3EX.; GLUCOSE,POINT OF CARE 63 MG/DL (70-110)
[2020-02-03 11:43] LABS: GLUCOMETER DEV NAME(LOC) 3EX.; GLUCOSE,POINT OF CARE 70 MG/DL (70-110)
[2020-02-03] MEDS: INSULIN LISPRO 100 UNITS/ML SQ PRN (12:32)
[2020-02-03 12:42] LABS: GLUCOMETER DEV NAME(LOC) 3EX.; GLUCOSE,POINT OF CARE 131 MG/DL (70-110)
[2020-02-03 16:22] LABS: GLUCOMETER DEV NAME(LOC) 3EX.; GLUCOSE,POINT OF CARE 110 MG/DL (70-110)
[2020-02-03 18:54] VITALS: BP 143/69
[2020-02-03] MEDS ORDERED: TUBERCULIN, PURIFIED PROTEIN DERIVATIVE 5 TU/0.1 ML SYRINGE ID ONE (19:00)
[2020-02-03] MEDS: TraZODone HCL 100 MG TABLET PO SCH (20:16)
[2020-02-03] MEDS: ATORVASTATIN CALCIUM 10 MG TABLET PO SCH (20:17)
[2020-02-03 21:08] LABS: GLUCOMETER DEV NAME(LOC) 3EX.; GLUCOSE,POINT OF CARE 126 MG/DL (70-110)
[2020-02-03] MEDS: ZOLPIDEM TARTRATE 10 MG TABLET PO PRN (22:41)
[2020-02-04 02:45] VITALS: BP 132/71
[2020-02-04] MEDS: QUEtiapine FUMARATE 100 MG TABLET PO PRN (02:46)
[2020-02-04] MEDS: IBUPROFEN 400 MG TABLET PO PRN (02:47)
[2020-02-04] MEDS: ALBUTEROL SULFATE HFA 90 MCG/PUFF 8 GM INHALER IH PRN ×2 (03:35→20:57)
[2020-02-04 05:35] LABS: GLUCOMETER DEV NAME(LOC) 3E.I 2; GLUCOSE,POINT OF CARE 86 MG/DL (70-110)
[2020-02-04] MEDS: GlipiZIDE 5 MG TABLET PO SCH ×2 (07:07→16:49)
[2020-02-04] MEDS: MetFORMIN HCL 500 MG TABLET PO SCH ×2 (07:07→16:49)
[2020-02-04 08:02] VITALS: BP 127/73
[2020-02-04] MEDS: RisperiDONE 2 MG TABLET PO SCH ×2 (08:35→20:14)
[2020-02-04] MEDS: CHOLECALCIFEROL (VIT D3) 1,000 UNITS [25 MCG] TABLET PO SCH (08:36)
[2020-02-04] MEDS: AmLODIPine BESYLATE 5 MG TABLET PO SCH (08:36)
[2020-02-04] MEDS: BusPIRone HCL 10 MG TABLET PO SCH ×3 (08:37→16:50)
[2020-02-04] MEDS: DIVALPROEX SODIUM 500 MG DR TABLET PO SCH ×2 (08:37→20:15)
[2020-02-04] MEDS: ASPIRIN 81 MG CHEWABLE TABLET PO SCH (08:37)
[2020-02-04] MEDS: METOPROLOL TARTRATE 25 MG TABLET PO SCH ×2 (08:38→16:50)
[2020-02-04 11:13] LABS: GLUCOMETER DEV NAME(LOC) 3EX.; GLUCOSE,POINT OF CARE 119 MG/DL (70-110)
[2020-02-04] MEDS: INSULIN LISPRO 100 UNITS/ML SQ PRN (11:33)
[2020-02-04] MEDS: LORazepam 1 MG TABLET PO PRN (12:33)
[2020-02-04 12:37] VITALS: BP 161/86
[2020-02-04 16:04] VITALS: BP 134/77
[2020-02-04 17:30] LABS: GLUCOMETER DEV NAME(LOC) 3EX.; GLUCOSE,POINT OF CARE 96 MG/DL (70-110)
[2020-02-04] MEDS: TraZODone HCL 100 MG TABLET PO SCH (20:15)
[2020-02-04] MEDS: ATORVASTATIN CALCIUM 10 MG TABLET PO SCH (20:15)
[2020-02-04 21:06] LABS: GLUCOMETER DEV NAME(LOC) 3EX.; GLUCOSE,POINT OF CARE 118 MG/DL (70-110)
[2020-02-04] MEDS: ZOLPIDEM TARTRATE 10 MG TABLET PO PRN (23:26)
[2020-02-05] MEDS: QUEtiapine FUMARATE 100 MG TABLET PO PRN (00:06)
[2020-02-05] MEDS: LORazepam 1 MG TABLET PO PRN ×2 (00:06→09:07)
[2020-02-05 00:12] VITALS: BP 130/83
[2020-02-05 05:30] LABS: GLUCOMETER DEV NAME(LOC) 3E.I 2; GLUCOSE,POINT OF CARE 69 MG/DL (70-110)
[2020-02-05] MEDS: MetFORMIN HCL 500 MG TABLET PO SCH (06:52)
[2020-02-05] MEDS: GlipiZIDE 5 MG TABLET PO SCH (06:52)
[2020-02-05] MEDS: AmLODIPine BESYLATE 5 MG TABLET PO SCH (09:08)
[2020-02-05] MEDS: CHOLECALCIFEROL (VIT D3) 1,000 UNITS [25 MCG] TABLET PO SCH (09:08)
[2020-02-05] MEDS: METOPROLOL TARTRATE 25 MG TABLET PO SCH (09:08)
[2020-02-05] MEDS: ASPIRIN 81 MG CHEWABLE TABLET PO SCH (09:08)
[2020-02-05] MEDS: DIVALPROEX SODIUM 500 MG DR TABLET PO SCH (09:08)
[2020-02-05] MEDS: BusPIRone HCL 10 MG TABLET PO SCH ×2 (09:08→12:38)
[2020-02-05] MEDS: RisperiDONE 2 MG TABLET PO SCH (09:10)
[2020-02-05 09:16] VITALS: BP 163/93
[2020-02-05] MEDS: ALBUTEROL SULFATE HFA 90 MCG/PUFF 8 GM INHALER IH PRN (09:21)
[2020-02-05] MEDS ORDERED: DIVA-78 PO (10:03)
[2020-02-05] MEDS ORDERED: AMLO5TAB9 PO (10:35)
[2020-02-05 11:43] LABS: GLUCOMETER DEV NAME(LOC) 3EX.; GLUCOSE,POINT OF CARE 93 MG/DL (70-110)
== END 2020-02-05 13:10 | disposition home or self-care (01) | DRG 885 ==
LOC: EMS 15:47 → 3EX 22:00
DX: F25.0 Schizoaffective disorder, bipolar type (principal); R45.851 Suicidal ideations; F41.9 Anxiety disorder, unspecified; I10 Essential (primary) hypertension; E78.5 Hyperlipidemia, unspecified; E55.9 Vitamin D deficiency, unspecified; R45.87 Impulsiveness; E11.9 Type 2 diabetes mellitus without complications; Z59.0 Homelessness; Z87.891 Personal history of nicotine dependence; Z03.818 Encounter for observation for suspected exposure to other biological agents ruled out
CPT/HCPCS: 87086; 97162; 97166; 97530; G0378; G0480; J1815; J2060; J3535

== ENCOUNTER 2020-02-05 19:41 | Emergency (ER) | payer MEDICARE, MEDICAID ==
[~2020-02-05] VITALS: Ht 162.6 cm; Wt 109.1 kg
[~2020-02-05 19:41] MED LIST changes: +AMLO5TAB9 PO; +DIVA-78 PO; +RISP2 PO; -RISP3 PO; -ROSU10TA22 PO
[2020-02-05] MEDS ORDERED: LORazepam 1 MG TABLET PO ONE (20:30)
[2020-02-05] MEDS ORDERED: LORazepam 2 MG/ML VIAL IM ONE (21:00)
[2020-02-05] MEDS ORDERED: HydrOXYzine HCL 50 MG TABLET PO ONE (23:00)
[2020-02-06] MEDS ORDERED: HydrOXYzine PAMOATE 25 MG CAPSULE PO ONE (09:15)
[2020-02-06 11:00] VITALS: BP 124/85
== END 2020-02-06 11:17 | disposition home or self-care (01) ==
LOC: EMS 19:41
DX: F41.9 Anxiety disorder, unspecified (principal); F31.9 Bipolar disorder, unspecified; E11.9 Type 2 diabetes mellitus without complications; I10 Essential (primary) hypertension; F20.9 Schizophrenia, unspecified; F17.210 Nicotine dependence, cigarettes, uncomplicated; Z88.8 Allergy status to other drugs, medicaments and biological substances; Z79.84 Long term (current) use of oral hypoglycemic drugs; Z79.82 Long term (current) use of aspirin
CPT/HCPCS: 96372; 99285; J2060

== ENCOUNTER 2020-10-01 13:15 | Emergency (ER) | payer MEDICARE, MEDICAID ==
[~2020-10-01] VITALS: Ht 162.6 cm; Wt 100.9 kg
[~2020-10-01 13:15] MED LIST changes: +AMLO-257 PO; -AMLO5TAB9 PO; -BENZ1TAB10 PO; -BUPR-93 PO; -CLON.5 PO; -DIPH25TA20 PO; +DIVA-112 PO; -DIVA-78 PO; -GABA-1181 PO; -INSLAN SQ; -LISI-660 PO; -OLAN5TAB2 PO; -RISP2 PO; +RISP2TAB45 PO; -TOPI100T37 PO
[2020-10-01] MEDS ORDERED: LORA10TA7 PO (13:59)
[2020-10-01] MEDS ORDERED: GABA-1181 PO (13:59)
[2020-10-01] MEDS ORDERED: SENN8.8S6 PO (13:59)
[2020-10-01] MEDS ORDERED: CETI-450 PO (13:59)
[2020-10-01] MEDS ORDERED: OLAN10TA3 PO (13:59)
[2020-10-01] MEDS ORDERED: ZOLP10TA8 PO (13:59)
[2020-10-01] MEDS ORDERED: FURO20 PO (13:59)
[2020-10-01] MEDS ORDERED: QUET100T PO (13:59)
[2020-10-01] MEDS ORDERED: HYD25 PO (13:59)
[2020-10-01] MEDS ORDERED: ARIP10TA8 PO (13:59)
[2020-10-01] MEDS ORDERED: LORazepam 2 MG TABLET PO ONE (14:45)
[2020-10-01 15:44] LABS: BASOPHILS % (AUTO) 0.3 % (0.0-2.0); EOSINOPHILS % (AUTO) 0.7 % (1.0-6.0); HEMATOCRIT 41.1 % (36-46); HEMOGLOBIN 13.6 g/dL (12.0-16.0); LYMPHOCYTES # (AUTO) 1.6 K/uL (1.0-4.8); MEAN CORPUSCULAR HEMOGLOBIN 28.6 pg (26.0-34.0); MEAN CORPUSCULAR HGB CONC 33.1 G/dL (31.0-37.0); MEAN CORPUSCULAR VOLUME 86 fL (80-100); MONOCYTES # (AUTO) 0.7 K/uL (0.1-1.0); MONOCYTES % (AUTO) 9.9 % (2.0-9.0); NEUTROPHILS # (AUTO) 4.6 K/uL (1.8-7.7); NEUTROPHILS % (AUTO) 66.1 % (40.0-70.0); PLATELET COUNT (AUTO) 213 K/uL (150-450); RED BLOOD CELL COUNT(AUTO) 4.76 MIL/uL (4.00-5.20); RED CELL DISTRIBUTION WIDTH 15.3 % (11.5-14.5)
[2020-10-01 15:53] LABS: CALCIUM, TOTAL 9.1 mg/dL (8.8-10.5); CREATININE 0.99 mg/dL (0.60-1.30); POTASSIUM 3.7 mmol/L (3.5-5.1)
[2020-10-01 15:56] LABS: ALBUMIN 3.6 g/dL (3.4-5.0); BILIRUBIN,TOTAL 0.2 mg/dL (0.1-1.0); TOTAL PROTEIN, SERUM 6.8 g/dL (6.4-8.2)
[2020-10-01 17:06] VITALS: BP 131/81
== END 2020-10-01 17:14 | disposition home or self-care (01) ==
LOC: EMS 13:15
DX: F41.9 Anxiety disorder, unspecified (principal); F31.9 Bipolar disorder, unspecified; E11.9 Type 2 diabetes mellitus without complications; I10 Essential (primary) hypertension; F20.9 Schizophrenia, unspecified; F17.210 Nicotine dependence, cigarettes, uncomplicated; Z79.82 Long term (current) use of aspirin; Z79.84 Long term (current) use of oral hypoglycemic drugs; Z88.8 Allergy status to other drugs, medicaments and biological substances

== ENCOUNTER 2020-10-13 13:23 | Emergency (ER) | payer MEDICARE, MEDICAID ==
[~2020-10-13] VITALS: Ht 167.6 cm; Wt 80.0 kg
[~2020-10-13 13:23] MED LIST changes: -AMLO-257 PO; +ARIP10TA8 PO; -BUSP10TA23 PO; +CETI-450 PO; +FURO20 PO; +GABA-1181 PO; +HYD25 PO; +LORA10TA7 PO; +OLAN10TA3 PO; +QUET100T PO; +SENN8.8S6 PO; +ZOLP10TA8 PO
[2020-10-13] MEDS ORDERED: GLIP5ER PO (13:48)
[2020-10-13] MEDS ORDERED: QUET100T33 PO (13:48)
[2020-10-13] MEDS ORDERED: ARIP10TA16 PO (13:48)
[2020-10-13] MEDS ORDERED: HYDR-3421 PO (13:48)
[2020-10-13] MEDS ORDERED: ALBU8HFA IH (13:48)
[2020-10-13] MEDS ORDERED: TRAZ150 PO (13:48)
[2020-10-13] MEDS ORDERED: OLAN20TA35 PO (13:48)
[2020-10-13] MEDS ORDERED: FLUT16H NASAL (13:48)
[2020-10-13] MEDS ORDERED: FURO20TA4 PO (13:48)
[2020-10-13] MEDS: HydrOXYzine PAMOATE 50 MG CAPSULE PO ONE (13:51)
[2020-10-13 14:06] LABS: BASOPHILS % (AUTO) 0.2 % (0.0-2.0); EOSINOPHILS % (AUTO) 0.7 % (1.0-6.0); HEMATOCRIT 41.2 % (36-46); HEMOGLOBIN 13.8 g/dL (12.0-16.0); LYMPHOCYTES # (AUTO) 1.9 K/uL (1.0-4.8); MEAN CORPUSCULAR HEMOGLOBIN 29.3 pg (26.0-34.0); MEAN CORPUSCULAR HGB CONC 33.5 G/dL (31.0-37.0); MEAN CORPUSCULAR VOLUME 88 fL (80-100); MONOCYTES # (AUTO) 0.5 K/uL (0.1-1.0); MONOCYTES % (AUTO) 6.6 % (2.0-9.0); NEUTROPHILS # (AUTO) 4.4 K/uL (1.8-7.7); NEUTROPHILS % (AUTO) 64.5 % (40.0-70.0); PLATELET COUNT (AUTO) 203 K/uL (150-450); RED BLOOD CELL COUNT(AUTO) 4.71 MIL/uL (4.00-5.20); RED CELL DISTRIBUTION WIDTH 13.8 % (11.5-14.5)
[2020-10-13 14:30] LABS: ANION GAP 9 mmol/L (8-16); CALCIUM, TOTAL 9.1 mg/dL (8.8-10.5); CARBON DIOXIDE 30 mmol/L (22-29); CHLORIDE 109 mmol/L (98-107); CREATININE 0.86 mg/dL (0.60-1.30); GLOMERULAR FILTR. RATE CALC > 60 mL/min (>60); GLUCOSE,RANDOM 123 mg/dL (70-110); POTASSIUM 4.4 mmol/L (3.5-5.1); SODIUM SERUM 148 mmol/L (136-145); UREA NITROGEN, BLOOD 21 mg/dL (7-18)
[2020-10-13 14:36] LABS: ALANINE AMINOTRANSFERASE 14 U/L (12-78); ALBUMIN 3.4 g/dL (3.4-5.0); ALKALINE PHOSPHATASE 88 U/L (46-116); ASPARTATE AMINOTRANSFERASE 9 U/L (15-37); BILIRUBIN,TOTAL 0.2 mg/dL (0.1-1.0); TOTAL PROTEIN, SERUM 6.7 g/dL (6.4-8.2)
[2020-10-13 15:01] VITALS: BP 156/92
[2020-10-13] MEDS: LORazepam 1 MG TABLET PO ONE (15:07)
== END 2020-10-13 15:29 | disposition home or self-care (01) ==
LOC: EMS 13:23
DX: F31.9 Bipolar disorder, unspecified (principal); F20.9 Schizophrenia, unspecified; I10 Essential (primary) hypertension; Z87.891 Personal history of nicotine dependence; Z79.899 Other long term (current) drug therapy
CPT/HCPCS: 93005; 99284

== ENCOUNTER 2021-01-29 14:48 | Emergency (ER) | payer MEDICARE, MEDICAID ==
[~2021-01-29] VITALS: Ht 162.6 cm; Wt 109.1 kg
[~2021-01-29 14:48] MED LIST changes: +ALBU8HFA IH; +ARIP10TA16 PO; +ARIP10TA38 PO; -ARIP10TA8 PO; -ASPI-728 PO; -ATOR10TA84 PO; -CHOL100018 PO; +FLUT16H NASAL; -FURO20 PO; +FURO20TA4 PO; -HYD25 PO; +HYDR-3421 PO; -LORA10TA7 PO; -OLAN10TA3 PO; +OLAN20TA35 PO; +QUET100T33 PO; -SENN8.8S6 PO; -ZOLP10TA8 PO
[2021-01-29 15:09] VITALS: BP 169/74
[2021-01-29 15:42] LABS: BASOPHILS % (AUTO) 0.3 % (0.0-2.0); EOSINOPHILS % (AUTO) 1.1 % (1.0-6.0); HEMATOCRIT 38.7 % (36-46); LYMPHOCYTES # (AUTO) 1.6 K/uL (1.0-4.8); LYMPHOCYTES % (AUTO) 25.2 % (22.0-44.0); MEAN CORPUSCULAR HGB CONC 33.7 G/dL (31.0-37.0); MEAN CORPUSCULAR VOLUME 86 fL (80-100); MONOCYTES # (AUTO) 0.5 K/uL (0.1-1.0); MONOCYTES % (AUTO) 8.2 % (2.0-9.0); NEUTROPHILS % (AUTO) 65.2 % (40.0-70.0); PLATELET COUNT (AUTO) 194 K/uL (150-450); RED BLOOD CELL COUNT(AUTO) 4.49 MIL/uL (4.00-5.20); RED CELL DISTRIBUTION WIDTH 13.4 % (11.5-14.5)
[2021-01-29 15:54] LABS: ANION GAP 10 mmol/L (8-16); CALCIUM, TOTAL 8.8 mg/dL (8.8-10.5); CARBON DIOXIDE 28 mmol/L (22-29); CHLORIDE 107 mmol/L (98-107); CREATININE 0.78 mg/dL (0.60-1.30); GLOMERULAR FILTR. RATE CALC > 60 mL/min (>60); GLUCOSE,RANDOM 117 mg/dL (70-110); SODIUM SERUM 145 mmol/L (136-145); UREA NITROGEN, BLOOD 21 mg/dL (7-18)
[2021-01-29 16:01] LABS: ALANINE AMINOTRANSFERASE 12 U/L (12-78); ALBUMIN 3.5 g/dL (3.4-5.0); ALKALINE PHOSPHATASE 82 U/L (46-116); ASPARTATE AMINOTRANSFERASE 11 U/L (15-37); BILIRUBIN,TOTAL 0.2 mg/dL (0.1-1.0); TOTAL PROTEIN, SERUM 6.3 g/dL (6.4-8.2); VALPROIC ACID 42 mcg/mL (50-100)
[2021-01-29] MEDS ORDERED: LORazepam 1 MG TABLET PO ONE (16:15)
== END 2021-01-29 17:42 | disposition home or self-care (01) ==
LOC: EMS 14:48
DX: F41.9 Anxiety disorder, unspecified (principal); F31.9 Bipolar disorder, unspecified; E11.9 Type 2 diabetes mellitus without complications; I10 Essential (primary) hypertension; F20.9 Schizophrenia, unspecified; F17.210 Nicotine dependence, cigarettes, uncomplicated
CPT/HCPCS: 36415; 80053; 80164; 85025; 99283; G0480

== ENCOUNTER 2021-02-08 12:40 | Emergency (ER) | payer MEDICARE, MEDICAID ==
[~2021-02-08] VITALS: Ht 162.6 cm; Wt 109.1 kg
[~2021-02-08 12:40] MED LIST changes: -ARIP10TA16 PO; +ARIP10TA56 PO
[2021-02-08 14:09] LABS: BASOPHILS % (AUTO) 0.3 % (0.0-2.0); HEMATOCRIT 38.7 % (36-46); LYMPHOCYTES # (AUTO) 1.6 K/uL (1.0-4.8); LYMPHOCYTES % (AUTO) 25.8 % (22.0-44.0); MEAN CORPUSCULAR HEMOGLOBIN 28.6 pg (26.0-34.0); MEAN CORPUSCULAR HGB CONC 33.4 G/dL (31.0-37.0); MEAN CORPUSCULAR VOLUME 86 fL (80-100); MONOCYTES # (AUTO) 0.4 K/uL (0.1-1.0); MONOCYTES % (AUTO) 7.1 % (2.0-9.0); NEUTROPHILS # (AUTO) 4.2 K/uL (1.8-7.7); NEUTROPHILS % (AUTO) 65.8 % (40.0-70.0); PLATELET COUNT (AUTO) 183 K/uL (150-450); RED BLOOD CELL COUNT(AUTO) 4.53 MIL/uL (4.00-5.20); RED CELL DISTRIBUTION WIDTH 13.3 % (11.5-14.5)
[2021-02-08] MEDS ORDERED: LORazepam 1 MG TABLET PO ONE (14:15)
[2021-02-08 14:18] LABS: ANION GAP 7 mmol/L (8-16); CALCIUM, TOTAL 8.9 mg/dL (8.8-10.5); CARBON DIOXIDE 31 mmol/L (22-29); CHLORIDE 104 mmol/L (98-107); CREATININE 0.84 mg/dL (0.60-1.30); GLOMERULAR FILTR. RATE CALC > 60 mL/min (>60); GLUCOSE,RANDOM 180 mg/dL (70-110); POTASSIUM 3.8 mmol/L (3.5-5.1); SODIUM SERUM 142 mmol/L (136-145); UREA NITROGEN, BLOOD 19 mg/dL (7-18)
[2021-02-08 14:24] LABS: ALANINE AMINOTRANSFERASE 16 U/L (12-78); ALBUMIN 3.4 g/dL (3.4-5.0); ALKALINE PHOSPHATASE 83 U/L (46-116); ASPARTATE AMINOTRANSFERASE 10 U/L (15-37); BILIRUBIN,TOTAL 0.2 mg/dL (0.1-1.0); CREATINE KINASE, TOTAL ONLY 66 U/L (26-192); TOTAL PROTEIN, SERUM 6.3 g/dL (6.4-8.2)
[2021-02-08 14:29] LABS: B-TYPE NATRIURETIC PEPTIDE 62 pg/mL (0-100)
[2021-02-08 15:20] VITALS: BP 142/70
== END 2021-02-08 15:52 | disposition home or self-care (01) ==
LOC: EMS 13:34
DX: J18.9 Pneumonia, unspecified organism (principal); F32.9 Major depressive disorder, single episode, unspecified; F31.9 Bipolar disorder, unspecified; I10 Essential (primary) hypertension; E11.9 Type 2 diabetes mellitus without complications; Z87.891 Personal history of nicotine dependence
CPT/HCPCS: 36415; 71045; 80053; 82550; 83880; 84484; 85025; 93005; 99285; G0480

== ENCOUNTER 2021-03-02 14:23 | Emergency (ER) | payer MEDICARE, MEDICAID ==
[~2021-03-02] VITALS: Ht 167.6 cm; Wt 95.5 kg
[2021-03-02] MEDS ORDERED: MAG HYDROX/AL HYDROX/SIMETH ES 30 ML SUSPENSION UDCUP PO ONE (15:00)
[2021-03-02] MEDS ORDERED: LORazepam 1 MG TABLET PO ONE (15:00)
[2021-03-02] MEDS ORDERED: ACETAMINOPHEN 500 MG TABLET PO ONE (15:00)
[2021-03-02 15:01] LABS: GLUCOSE,POINT OF CARE 117 MG/DL (70-110)
[2021-03-02 15:25] LABS: BASOPHILS % (AUTO) 0.7 % (0.0-2.0); EOSINOPHILS % (AUTO) 1.2 % (1.0-6.0); HEMATOCRIT 41.1 % (36-46); HEMOGLOBIN 13.6 g/dL (12.0-16.0); MEAN CORPUSCULAR HEMOGLOBIN 28.5 pg (26.0-34.0); MEAN CORPUSCULAR VOLUME 87 fL (80-100); MONOCYTES # (AUTO) 0.6 K/uL (0.1-1.0); MONOCYTES % (AUTO) 8.6 % (2.0-9.0); NEUTROPHILS # (AUTO) 4.2 K/uL (1.8-7.7); NEUTROPHILS % (AUTO) 60.5 % (40.0-70.0); PLATELET COUNT (AUTO) 227 K/uL (150-450); RED BLOOD CELL COUNT(AUTO) 4.75 MIL/uL (4.00-5.20); RED CELL DISTRIBUTION WIDTH 13.6 % (11.5-14.5)
[2021-03-02 15:34] LABS: ANION GAP 3 mmol/L (8-16); CALCIUM, TOTAL 8.8 mg/dL (8.8-10.5); CARBON DIOXIDE 32 mmol/L (22-29); CHLORIDE 104 mmol/L (98-107); CREATININE 0.59 mg/dL (0.60-1.30); GLOMERULAR FILTR. RATE CALC > 60 mL/min (>60); GLUCOSE,RANDOM 109 mg/dL (70-110); POTASSIUM 4.1 mmol/L (3.5-5.1); SODIUM SERUM 139 mmol/L (136-145); UREA NITROGEN, BLOOD 16 mg/dL (7-18)
[2021-03-02 15:40] LABS: ALANINE AMINOTRANSFERASE 17 U/L (12-78); ALBUMIN 3.6 g/dL (3.4-5.0); ALKALINE PHOSPHATASE 88 U/L (46-116); ASPARTATE AMINOTRANSFERASE 12 U/L (15-37); BILIRUBIN,TOTAL 0.2 mg/dL (0.1-1.0); LIPASE 46 U/L (73-393); TOTAL PROTEIN, SERUM 6.6 g/dL (6.4-8.2)
[2021-03-02 15:59] VITALS: BP 158/74
== END 2021-03-02 16:33 | disposition home or self-care (01) ==
LOC: EMS 14:37
DX: K29.70 Gastritis, unspecified, without bleeding (principal); F41.9 Anxiety disorder, unspecified; F31.9 Bipolar disorder, unspecified; E11.9 Type 2 diabetes mellitus without complications; I10 Essential (primary) hypertension; F20.9 Schizophrenia, unspecified; F17.210 Nicotine dependence, cigarettes, uncomplicated; Z88.8 Allergy status to other drugs, medicaments and biological substances; Z79.84 Long term (current) use of oral hypoglycemic drugs
CPT/HCPCS: 80053; 82962; 83690; 84484; 85025; 93005; 99284

== ENCOUNTER 2021-03-08 20:07 | Emergency (ER) | payer MEDICARE, MEDICAID ==
[~2021-03-08] VITALS: Ht 162.6 cm; Wt 108.0 kg
[2021-03-08] MEDS ORDERED: ACETAMINOPHEN 500 MG TABLET PO ONE (20:45)
[2021-03-08 20:53] LABS: BASOPHILS % (AUTO) 0.3 % (0.0-2.0); EOSINOPHILS % (AUTO) 1.1 % (1.0-6.0); HEMATOCRIT 42.2 % (36-46); LYMPHOCYTES # (AUTO) 1.9 K/uL (1.0-4.8); LYMPHOCYTES % (AUTO) 30.1 % (22.0-44.0); MEAN CORPUSCULAR HEMOGLOBIN 28.7 pg (26.0-34.0); MEAN CORPUSCULAR HGB CONC 33.1 G/dL (31.0-37.0); MEAN CORPUSCULAR VOLUME 87 fL (80-100); MONOCYTES # (AUTO) 0.5 K/uL (0.1-1.0); MONOCYTES % (AUTO) 8.2 % (2.0-9.0); NEUTROPHILS # (AUTO) 3.9 K/uL (1.8-7.7); NEUTROPHILS % (AUTO) 60.3 % (40.0-70.0); PLATELET COUNT (AUTO) 225 K/uL (150-450); RED BLOOD CELL COUNT(AUTO) 4.87 MIL/uL (4.00-5.20); RED CELL DISTRIBUTION WIDTH 13.5 % (11.5-14.5)
[2021-03-08 20:59] LABS: APPEARANCE,URINE CLEAR (CLEAR); BILIRUBIN,URINE NEGATIVE (NEGATIVE); GLUCOSE, URINE (UA) NEGATIVE (NEGATIVE); KETONES,URINE TRACE mg/dL (NEGATIVE); LEUKOCYTE ESTERASE ,URINE NEGATIVE (NEGATIVE); NITRATE,URINE NEGATIVE (NEGATIVE); OCCULT BLOOD,URINE NEGATIVE (NEGATIVE); PROTEIN,URINE NEGATIVE (NEGATIVE); UROBILINOGEN,URINE 0.2 mg/dL (<=1.0)
[2021-03-08 21:06] LABS: ANION GAP 7 mmol/L (8-16); CALCIUM, TOTAL 8.8 mg/dL (8.8-10.5); CARBON DIOXIDE 29 mmol/L (22-29); CHLORIDE 103 mmol/L (98-107); CREATININE 0.78 mg/dL (0.60-1.30); GLOMERULAR FILTR. RATE CALC > 60 mL/min (>60); GLUCOSE,RANDOM 142 mg/dL (70-110); POTASSIUM 3.9 mmol/L (3.5-5.1); SODIUM SERUM 139 mmol/L (136-145); UREA NITROGEN, BLOOD 21 mg/dL (7-18)
[2021-03-08 21:08] VITALS: BP 165/77
[2021-03-08 21:10] LABS: ALANINE AMINOTRANSFERASE 16 U/L (12-78); ALBUMIN 3.6 g/dL (3.4-5.0); ALKALINE PHOSPHATASE 87 U/L (46-116); ASPARTATE AMINOTRANSFERASE 9 U/L (15-37); BILIRUBIN,TOTAL 0.2 mg/dL (0.1-1.0); TOTAL PROTEIN, SERUM 6.7 g/dL (6.4-8.2)
== END 2021-03-08 22:15 | disposition home or self-care (01) ==
LOC: EMS 20:20
DX: R39.15 Urgency of urination (principal); F41.9 Anxiety disorder, unspecified; F31.9 Bipolar disorder, unspecified; E11.9 Type 2 diabetes mellitus without complications; I10 Essential (primary) hypertension; F20.9 Schizophrenia, unspecified; F17.210 Nicotine dependence, cigarettes, uncomplicated; Z88.8 Allergy status to other drugs, medicaments and biological substances; Z79.84 Long term (current) use of oral hypoglycemic drugs
CPT/HCPCS: 80053; 81003; 84484; 85025; 93005; 99284

== ENCOUNTER 2021-03-26 10:49 | Emergency (ER) | payer MEDICARE, MEDICAID ==
[~2021-03-26] VITALS: Ht 165.1 cm; Wt 110.0 kg
[2021-03-26 11:14] LABS: APPEARANCE,URINE CLEAR (CLEAR); BILIRUBIN,URINE NEGATIVE (NEGATIVE); GLUCOSE, URINE (UA) NEGATIVE (NEGATIVE); KETONES,URINE NEGATIVE (NEGATIVE); LEUKOCYTE ESTERASE ,URINE NEGATIVE (NEGATIVE); NITRATE,URINE NEGATIVE (NEGATIVE); OCCULT BLOOD,URINE NEGATIVE (NEGATIVE); PH,URINE 6.5 (5.0-8.0); PROTEIN,URINE NEGATIVE (NEGATIVE); UROBILINOGEN,URINE 0.2 mg/dL (<=1.0)
[2021-03-26 11:30] LABS: BASOPHILS % (AUTO) 0.4 % (0.0-2.0); EOSINOPHILS % (AUTO) 0.9 % (1.0-6.0); HEMATOCRIT 39.3 % (36-46); HEMOGLOBIN 13.2 g/dL (12.0-16.0); LYMPHOCYTES # (AUTO) 1.5 K/uL (1.0-4.8); LYMPHOCYTES % (AUTO) 23.3 % (22.0-44.0); MEAN CORPUSCULAR HEMOGLOBIN 29.1 pg (26.0-34.0); MEAN CORPUSCULAR HGB CONC 33.5 G/dL (31.0-37.0); MEAN CORPUSCULAR VOLUME 87 fL (80-100); MONOCYTES # (AUTO) 0.5 K/uL (0.1-1.0); NEUTROPHILS # (AUTO) 4.2 K/uL (1.8-7.7); NEUTROPHILS % (AUTO) 67.4 % (40.0-70.0); PLATELET COUNT (AUTO) 203 K/uL (150-450); RED BLOOD CELL COUNT(AUTO) 4.53 MIL/uL (4.00-5.20); RED CELL DISTRIBUTION WIDTH 13.6 % (11.5-14.5)
[2021-03-26 11:39] LABS: ANION GAP 1 mmol/L (8-16); CALCIUM, TOTAL 8.7 mg/dL (8.8-10.5); CARBON DIOXIDE 31 mmol/L (22-29); CHLORIDE 103 mmol/L (98-107); CREATININE 0.79 mg/dL (0.60-1.30); GLOMERULAR FILTR. RATE CALC > 60 mL/min (>60); GLUCOSE,RANDOM 175 mg/dL (70-110); POTASSIUM 4.2 mmol/L (3.5-5.1); SODIUM SERUM 135 mmol/L (136-145); UREA NITROGEN, BLOOD 19 mg/dL (7-18)
[2021-03-26 11:44] LABS: BACTERIA,URINE None Seen /HPF (None Seen); RBC,URINE None Seen /HPF (0-2); WBC,URINE None Seen /HPF (0-5)
[2021-03-26 11:51] LABS: ALANINE AMINOTRANSFERASE 13 U/L (12-78); ALBUMIN 3.4 g/dL (3.4-5.0); ALKALINE PHOSPHATASE 83 U/L (46-116); ASPARTATE AMINOTRANSFERASE 10 U/L (15-37); BILIRUBIN,TOTAL 0.2 mg/dL (0.1-1.0); TOTAL PROTEIN, SERUM 6.8 g/dL (6.4-8.2)
[2021-03-26 12:02] VITALS: BP 129/70
== END 2021-03-26 13:25 | disposition home or self-care (01) ==
LOC: EMS 10:49
DX: N39.0 Urinary tract infection, site not specified (principal); F41.9 Anxiety disorder, unspecified; F31.9 Bipolar disorder, unspecified; E11.9 Type 2 diabetes mellitus without complications; I10 Essential (primary) hypertension; F20.9 Schizophrenia, unspecified; F17.210 Nicotine dependence, cigarettes, uncomplicated; Z88.8 Allergy status to other drugs, medicaments and biological substances; Z79.84 Long term (current) use of oral hypoglycemic drugs
CPT/HCPCS: 80053; 81001; 82962; 85025; 99283

== ENCOUNTER 2021-05-11 16:39 | Emergency (ER) | payer MEDICARE, MEDICAID ==
[~2021-05-11] VITALS: Ht 165.1 cm; Wt 100.0 kg
[~2021-05-11 16:39] MED LIST changes: -QUET100T33 PO; +QUET100T34 PO
[2021-05-11 18:31] LABS: APPEARANCE,URINE CLEAR (CLEAR); BILIRUBIN,URINE NEGATIVE (NEGATIVE); GLUCOSE, URINE (UA) NEGATIVE (NEGATIVE); KETONES,URINE 15 mg/dL (NEGATIVE); LEUKOCYTE ESTERASE ,URINE NEGATIVE (NEGATIVE); NITRATE,URINE NEGATIVE (NEGATIVE); OCCULT BLOOD,URINE NEGATIVE (NEGATIVE); PH,URINE 6.5 (5.0-8.0); PROTEIN,URINE NEGATIVE (NEGATIVE); UROBILINOGEN,URINE 0.2 mg/dL (<=1.0)
[2021-05-11 18:41] VITALS: BP 145/80
== END 2021-05-11 19:30 | disposition home or self-care (01) ==
LOC: EMS 16:45
DX: R39.15 Urgency of urination (principal); F41.9 Anxiety disorder, unspecified; F31.9 Bipolar disorder, unspecified; E11.9 Type 2 diabetes mellitus without complications; I10 Essential (primary) hypertension; F20.9 Schizophrenia, unspecified; F17.210 Nicotine dependence, cigarettes, uncomplicated; Z79.84 Long term (current) use of oral hypoglycemic drugs; Z88.8 Allergy status to other drugs, medicaments and biological substances
CPT/HCPCS: 81003; 99283

== ENCOUNTER 2021-05-18 12:54 | Emergency (ER) | payer MEDICARE, MEDICAID ==
[~2021-05-18] VITALS: Ht 162.6 cm; Wt 109.1 kg
[2021-05-18 14:43] LABS: APPEARANCE,URINE CLEAR (CLEAR); BILIRUBIN,URINE NEGATIVE (NEGATIVE); GLUCOSE, URINE (UA) NEGATIVE (NEGATIVE); KETONES,URINE NEGATIVE (NEGATIVE); LEUKOCYTE ESTERASE ,URINE NEGATIVE (NEGATIVE); NITRATE,URINE NEGATIVE (NEGATIVE); OCCULT BLOOD,URINE NEGATIVE (NEGATIVE); PH,URINE 7.5 (5.0-8.0); PROTEIN,URINE NEGATIVE (NEGATIVE); UROBILINOGEN,URINE 0.2 mg/dL (<=1.0)
[2021-05-18 16:00] VITALS: BP 131/74
== END 2021-05-18 16:36 | disposition home or self-care (01) ==
LOC: EMS 13:08
DX: R33.9 Retention of urine, unspecified (principal); J45.909 Unspecified asthma, uncomplicated; I10 Essential (primary) hypertension; E11.9 Type 2 diabetes mellitus without complications; F31.9 Bipolar disorder, unspecified; F41.9 Anxiety disorder, unspecified; F20.9 Schizophrenia, unspecified; Z87.891 Personal history of nicotine dependence; Z88.5 Allergy status to narcotic agent; Z79.899 Other long term (current) drug therapy; Z79.84 Long term (current) use of oral hypoglycemic drugs
CPT/HCPCS: 51702; 81003; 99284

== ENCOUNTER 2021-05-18 18:35 | Emergency (ER) | payer MEDICARE, MEDICAID ==
[~2021-05-18] VITALS: Ht 162.6 cm; Wt 110.9 kg
[2021-05-18 19:07] VITALS: BP 161/98
== END 2021-05-18 21:30 | disposition left against medical advice (07) ==
LOC: EMS 18:38
DX: T83.028A Displacement of other urinary catheter, initial encounter (principal); R33.9 Retention of urine, unspecified; F41.9 Anxiety disorder, unspecified; F31.9 Bipolar disorder, unspecified; F20.9 Schizophrenia, unspecified; I10 Essential (primary) hypertension; E11.9 Type 2 diabetes mellitus without complications; Z88.8 Allergy status to other drugs, medicaments and biological substances; Z79.899 Other long term (current) drug therapy; Z87.891 Personal history of nicotine dependence
CPT/HCPCS: 82962; 99283

== ENCOUNTER 2021-05-23 17:28 | Emergency (ER) | payer MEDICARE, MEDICAID ==
[~2021-05-23] VITALS: Ht 162.6 cm; Wt 111.4 kg
[2021-05-23 17:31] VITALS: BP 175/94
== END 2021-05-23 18:48 | disposition left against medical advice (07) ==
LOC: EMS 17:32
DX: Z46.6 Encounter for fitting and adjustment of urinary device (principal); Z53.21 Procedure and treatment not carried out due to patient leaving prior to being seen by health care provider

== ENCOUNTER 2021-05-26 11:36 | Emergency (ER) | payer MEDICARE, MEDICAID ==
[~2021-05-26] VITALS: Ht 162.6 cm; Wt 110.9 kg
[2021-05-26] MEDS ORDERED: LORazepam 1 MG TABLET PO ONE (12:30)
[2021-05-26 12:48] VITALS: BP 131/69
== END 2021-05-26 12:54 | disposition home or self-care (01) ==
LOC: EMS 11:39
DX: R33.9 Retention of urine, unspecified (principal); F41.9 Anxiety disorder, unspecified; F32.9 Major depressive disorder, single episode, unspecified; E11.9 Type 2 diabetes mellitus without complications; I10 Essential (primary) hypertension; F20.9 Schizophrenia, unspecified; Z87.891 Personal history of nicotine dependence
CPT/HCPCS: 51702; 99284; Z7502; Z7610

== ENCOUNTER 2021-06-04 09:49 | Emergency (ER) | payer MEDICARE, MEDICAID ==
[~2021-06-04] VITALS: Ht 162.6 cm; Wt 111.4 kg
[~2021-06-04 09:49] MED LIST changes: -QUET100T PO
[2021-06-04 10:34] VITALS: BP 139/67
[2021-06-04 11:12] LABS: BASOPHILS % (AUTO) 0.4 % (0.0-2.0); EOSINOPHILS % (AUTO) 0.8 % (1.0-6.0); HEMATOCRIT 40.6 % (36-46); HEMOGLOBIN 13.5 g/dL (12.0-16.0); LYMPHOCYTES # (AUTO) 1.2 K/uL (1.0-4.8); LYMPHOCYTES % (AUTO) 17.6 % (22.0-44.0); MEAN CORPUSCULAR HEMOGLOBIN 28.8 pg (26.0-34.0); MEAN CORPUSCULAR HGB CONC 33.2 G/dL (31.0-37.0); MEAN CORPUSCULAR VOLUME 87 fL (80-100); MONOCYTES # (AUTO) 0.4 K/uL (0.1-1.0); MONOCYTES % (AUTO) 6.4 % (2.0-9.0); NEUTROPHILS % (AUTO) 74.8 % (40.0-70.0); PLATELET COUNT (AUTO) 177 K/uL (150-450); RED BLOOD CELL COUNT(AUTO) 4.69 MIL/uL (4.00-5.20); RED CELL DISTRIBUTION WIDTH 12.7 % (11.5-14.5)
[2021-06-04 11:24] LABS: ANION GAP 8 mmol/L (8-16); CALCIUM, TOTAL 8.7 mg/dL (8.8-10.5); CARBON DIOXIDE 33 mmol/L (22-29); CHLORIDE 106 mmol/L (98-107); CREATININE 0.97 mg/dL (0.60-1.30); GLOMERULAR FILTR. RATE CALC 58 mL/min (>60); GLUCOSE,RANDOM 186 mg/dL (70-110); POTASSIUM 4.4 mmol/L (3.5-5.1); SODIUM SERUM 147 mmol/L (136-145); UREA NITROGEN, BLOOD 23 mg/dL (7-18)
[2021-06-04 11:39] LABS: ALANINE AMINOTRANSFERASE 13 U/L (12-78); ALBUMIN 3.1 g/dL (3.4-5.0); ALKALINE PHOSPHATASE 85 U/L (46-116); ASPARTATE AMINOTRANSFERASE 8 U/L (15-37); BILIRUBIN,TOTAL 0.2 mg/dL (0.1-1.0); FREE T4 (FREE THYROXINE) 1.16 ng/dL (0.76-1.46); THYROID STIMULATING HORMONE 0.62 uIU/mL (0.36-3.74); TOTAL PROTEIN, SERUM 6.8 g/dL (6.4-8.2)
[2021-06-04] MEDS ORDERED: LORazepam 2 MG TABLET PO ONE (12:15)
== END 2021-06-04 16:48 | disposition home or self-care (01) ==
LOC: EMS 09:49
DX: F41.9 Anxiety disorder, unspecified (principal); R33.9 Retention of urine, unspecified; I10 Essential (primary) hypertension; E11.9 Type 2 diabetes mellitus without complications; F31.9 Bipolar disorder, unspecified; F20.9 Schizophrenia, unspecified; Z87.891 Personal history of nicotine dependence; Z88.8 Allergy status to other drugs, medicaments and biological substances; Z79.899 Other long term (current) drug therapy
CPT/HCPCS: 36415; 51702; 71045; 80053; 84439; 84443; 85025; 93005; 99285; G0480

== ENCOUNTER 2021-06-21 04:04 | Emergency (ER) | payer MEDICARE, MEDICAID ==
[~2021-06-21] VITALS: Ht 162.6 cm; Wt 111.4 kg
[2021-06-21 04:22] VITALS: BP 194/102
== END 2021-06-21 06:15 | disposition home or self-care (01) ==
LOC: EMS 04:05
DX: I20.9 Angina pectoris, unspecified (principal); F41.9 Anxiety disorder, unspecified; F31.9 Bipolar disorder, unspecified; E11.8 Type 2 diabetes mellitus with unspecified complications; I10 Essential (primary) hypertension; F20.9 Schizophrenia, unspecified; T83.091A Other mechanical complication of indwelling urethral catheter, initial encounter; Y84.6 Urinary catheterization as the cause of abnormal reaction of the patient, or of later complication, without mention of misadventure at the time of the procedure; Y92.89 Other specified places as the place of occurrence of the external cause
CPT/HCPCS: 99283; Z7502

== ENCOUNTER → 2021-06-26 | Emergency (ER) | payer MEDICARE, MEDICAID ==
[~2021-06-26] VITALS: Ht 162.6 cm; Wt 111.4 kg
[2021-06-26 09:27] LABS: APPEARANCE,URINE CLEAR (CLEAR); BILIRUBIN,URINE NEGATIVE (NEGATIVE); GLUCOSE, URINE (UA) NEGATIVE (NEGATIVE); KETONES,URINE TRACE mg/dL (NEGATIVE); LEUKOCYTE ESTERASE ,URINE SMALL (NEGATIVE); NITRATE,URINE NEGATIVE (NEGATIVE); OCCULT BLOOD,URINE NEGATIVE (NEGATIVE); PROTEIN,URINE NEGATIVE (NEGATIVE); UROBILINOGEN,URINE 0.2 mg/dL (<=1.0)
[2021-06-26 09:41] LABS: BACTERIA,URINE None Seen /HPF (None Seen); RBC,URINE None Seen /HPF (0-2); SQUAMOUS EPITHELIAL CELL,UR Few /LPF (None Seen)
[2021-06-26 11:00] VITALS: BP 172/90
== END | disposition home or self-care (01) ==
LOC: EMS 08:46
DX: R30.0 Dysuria (principal); R32 Unspecified urinary incontinence; F41.9 Anxiety disorder, unspecified; F32.9 Major depressive disorder, single episode, unspecified; E11.9 Type 2 diabetes mellitus without complications; I10 Essential (primary) hypertension
CPT/HCPCS: 81001; 82962; 99283

== ENCOUNTER 2021-07-10 10:59 | Emergency (ER) | payer MEDICARE, MEDICAID ==
[~2021-07-10] VITALS: Ht 162.6 cm; Wt 111.4 kg
[~2021-07-10 10:59] MED LIST changes: +METF-1211 PO; -METF-960 PO
[2021-07-10 12:02] VITALS: BP 151/79
== END 2021-07-10 12:02 | disposition home or self-care (01) ==
LOC: EMS 10:59
DX: T83.031A Leakage of indwelling urethral catheter, initial encounter (principal); Y84.6 Urinary catheterization as the cause of abnormal reaction of the patient, or of later complication, without mention of misadventure at the time of the procedure; R33.9 Retention of urine, unspecified; I20.9 Angina pectoris, unspecified; F31.9 Bipolar disorder, unspecified; E11.9 Type 2 diabetes mellitus without complications; I10 Essential (primary) hypertension; F20.9 Schizophrenia, unspecified; Z79.84 Long term (current) use of oral hypoglycemic drugs
CPT/HCPCS: 99283; Z7502

== ENCOUNTER 2021-07-14 09:48 | Emergency (ER) | payer MEDICARE, MEDICAID ==
[~2021-07-14] VITALS: Ht 162.6 cm; Wt 111.4 kg
[2021-07-14 10:27] LABS: GLUCOMETER DEV NAME(LOC) ERT.5; GLUCOSE,POINT OF CARE 170 MG/DL (70-110)
[2021-07-14 11:18] VITALS: BP 175/91
== END 2021-07-14 13:20 | disposition home or self-care (01) ==
LOC: EMS 09:50
DX: T83.098A Other mechanical complication of other urinary catheter, initial encounter (principal); X58.XXXA Exposure to other specified factors, initial encounter; Y93.89 Activity, other specified; Y92.89 Other specified places as the place of occurrence of the external cause; Y99.8 Other external cause status
CPT/HCPCS: 82962; 99283

== ENCOUNTER 2021-07-28 10:18 | Emergency (ER) | payer MEDICARE, MEDICAID ==
[~2021-07-28] VITALS: Ht 162.6 cm; Wt 109.1 kg
[2021-07-28 13:53] VITALS: BP 140/7
== END 2021-07-28 15:27 | disposition home or self-care (01) ==
LOC: EMS 10:18
DX: R33.9 Retention of urine, unspecified (principal); I10 Essential (primary) hypertension; E11.9 Type 2 diabetes mellitus without complications; F31.9 Bipolar disorder, unspecified; F20.9 Schizophrenia, unspecified; Z87.891 Personal history of nicotine dependence; Z88.8 Allergy status to other drugs, medicaments and biological substances; Z79.899 Other long term (current) drug therapy; Z79.84 Long term (current) use of oral hypoglycemic drugs
CPT/HCPCS: 99283

== ENCOUNTER 2021-07-31 11:05 | Emergency (ER) | payer MEDICARE, MEDICAID ==
[~2021-07-31] VITALS: Ht 162.6 cm; Wt 108.0 kg
[2021-07-31 11:19] VITALS: BP 155/85
[2021-07-31] MEDS ORDERED: CefTRIAXone 1 GM/DEXTROSE 50 ML IV ONE (12:00)
== END 2021-07-31 12:49 | disposition home or self-care (01) ==
LOC: EMS 11:10
DX: R33.9 Retention of urine, unspecified (principal); N39.0 Urinary tract infection, site not specified; I10 Essential (primary) hypertension; E11.9 Type 2 diabetes mellitus without complications; F41.9 Anxiety disorder, unspecified; F17.210 Nicotine dependence, cigarettes, uncomplicated; Z79.84 Long term (current) use of oral hypoglycemic drugs; Z79.899 Other long term (current) drug therapy; Z88.8 Allergy status to other drugs, medicaments and biological substances
CPT/HCPCS: 51702; 96365; 99284; J0696

== ENCOUNTER 2021-08-04 08:16 | Emergency (ER) | payer MEDICARE, MEDICAID ==
[~2021-08-04] VITALS: Ht 162.6 cm; Wt 108.0 kg
[2021-08-04 08:24] VITALS: BP 177/85
[2021-08-04 08:40] LABS: GLUCOSE,POINT OF CARE 247 MG/DL (70-110)
[2021-08-04] MEDS ORDERED: LORazepam 1 MG TABLET PO ONE (08:45)
== END 2021-08-04 09:35 | disposition home or self-care (01) ==
LOC: EMS 08:16
DX: T83.098A Other mechanical complication of other urinary catheter, initial encounter (principal); F41.9 Anxiety disorder, unspecified; I10 Essential (primary) hypertension; E11.9 Type 2 diabetes mellitus without complications; F17.210 Nicotine dependence, cigarettes, uncomplicated; Z88.8 Allergy status to other drugs, medicaments and biological substances; Z79.899 Other long term (current) drug therapy; Z79.84 Long term (current) use of oral hypoglycemic drugs
CPT/HCPCS: 82962; 99283

== ENCOUNTER 2021-08-04 15:35 | Emergency (ER) | payer MEDICARE, MEDICAID ==
[~2021-08-04] VITALS: Ht 167.6 cm; Wt 100.0 kg
[2021-08-04] MEDS ORDERED: OXYBUTYNIN CHLORIDE 5 MG ER TABLET PO ONE (16:45)
[2021-08-04 18:29] VITALS: BP 150/72
== END 2021-08-04 18:59 | disposition home or self-care (01) ==
LOC: EMS 15:37
DX: R33.9 Retention of urine, unspecified (principal); F41.9 Anxiety disorder, unspecified; I10 Essential (primary) hypertension; E11.9 Type 2 diabetes mellitus without complications; F17.210 Nicotine dependence, cigarettes, uncomplicated; Z88.5 Allergy status to narcotic agent; Z91.018 Allergy to other foods; Z79.84 Long term (current) use of oral hypoglycemic drugs; Z79.899 Other long term (current) drug therapy
CPT/HCPCS: 51702; 99284; Z7502; Z7610

== ENCOUNTER 2021-08-12 13:26 | Emergency (ER) | payer MEDICARE, MEDICAID ==
[~2021-08-12] VITALS: Ht 162.6 cm; Wt 109.1 kg
[~2021-08-12 13:26] MED LIST changes: -ARIP10TA38 PO
[2021-08-12 13:57] LABS: GLUCOMETER DEV NAME(LOC) ERT.5; GLUCOSE,POINT OF CARE 210 MG/DL (70-110)
[2021-08-12] MEDS ORDERED: LORazepam 2 MG/ML VIAL IM ONE (14:15)
[2021-08-12 17:12] VITALS: BP 135/81
== END 2021-08-12 17:14 | disposition home or self-care (01) ==
LOC: EMS 13:26
DX: T83.098A Other mechanical complication of other urinary catheter, initial encounter (principal); R33.9 Retention of urine, unspecified; F41.9 Anxiety disorder, unspecified; I10 Essential (primary) hypertension; E11.9 Type 2 diabetes mellitus without complications; F17.210 Nicotine dependence, cigarettes, uncomplicated; Z88.8 Allergy status to other drugs, medicaments and biological substances; Z79.899 Other long term (current) drug therapy
CPT/HCPCS: 51702; 82962; 96372; 99284; J2060

== ENCOUNTER 2021-09-04 14:11 | Emergency (ER) | payer MEDICARE, MEDICAID ==
[~2021-09-04] VITALS: Ht 162.6 cm; Wt 115.9 kg
[2021-09-04 17:02] LABS: BASOPHILS % (AUTO) 0.4 % (0.0-2.0); EOSINOPHILS % (AUTO) 0.4 % (1.0-6.0); HEMATOCRIT 40.1 % (36-46); LYMPHOCYTES % (AUTO) 26.9 % (22.0-44.0); MEAN CORPUSCULAR HEMOGLOBIN 29.2 pg (26.0-34.0); MEAN CORPUSCULAR HGB CONC 34.9 G/dL (31.0-37.0); MEAN CORPUSCULAR VOLUME 84 fL (80-100); MONOCYTES # (AUTO) 0.6 K/uL (0.1-1.0); MONOCYTES % (AUTO) 8.1 % (2.0-9.0); NEUTROPHILS # (AUTO) 4.8 K/uL (1.8-7.7); NEUTROPHILS % (AUTO) 64.2 % (40.0-70.0); PLATELET COUNT (AUTO) 246 K/uL (150-450); RED CELL DISTRIBUTION WIDTH 13.5 % (11.5-14.5)
[2021-09-04 17:12] LABS: ANION GAP 9 mmol/L (8-16); CALCIUM, TOTAL 9.4 mg/dL (8.8-10.5); CARBON DIOXIDE 27 mmol/L (22-29); CHLORIDE 105 mmol/L (98-107); CREATININE 0.79 mg/dL (0.60-1.30); GLOMERULAR FILTR. RATE CALC > 60 mL/min (>60); GLUCOSE,RANDOM 118 mg/dL (70-110); POTASSIUM 3.9 mmol/L (3.5-5.1); SODIUM SERUM 141 mmol/L (136-145); UREA NITROGEN, BLOOD 19 mg/dL (7-18)
[2021-09-04 17:18] LABS: ALANINE AMINOTRANSFERASE 18 U/L (12-78); ALBUMIN 3.6 g/dL (3.4-5.0); ALKALINE PHOSPHATASE 98 U/L (46-116); ASPARTATE AMINOTRANSFERASE 11 U/L (15-37); BILIRUBIN,TOTAL 0.3 mg/dL (0.1-1.0); TOTAL PROTEIN, SERUM 7.1 g/dL (6.4-8.2)
[2021-09-04 19:00] LABS: COVID AG,FIA SOURCE NASOPHARYNGEAL
[2021-09-04 19:12] LABS: AMPHET/METH SCREEN,URINE NEGATIVE (NEGATIVE); BARBITURATE SCREEN, URINE NEGATIVE (NEGATIVE); BENZODIAZEPINES SCREEN,URINE NEGATIVE (NEGATIVE); CANNABINOID SCREEN,URINE NEGATIVE (NEGATIVE); COCAINE SCREEN,URINE NEGATIVE (NEGATIVE); METHADONE SCREEN, URINE NEGATIVE (NEGATIVE); OPIATE SCREEN,URINE NEGATIVE (NEGATIVE)
[2021-09-04 19:14] LABS: APPEARANCE,URINE CLEAR (CLEAR); BILIRUBIN,URINE NEGATIVE (NEGATIVE); GLUCOSE, URINE (UA) NEGATIVE (NEGATIVE); KETONES,URINE 40 mg/dL (NEGATIVE); LEUKOCYTE ESTERASE ,URINE MODERATE (NEGATIVE); NITRATE,URINE NEGATIVE (NEGATIVE); OCCULT BLOOD,URINE NEGATIVE (NEGATIVE); PH,URINE 8.5 (5.0-8.0); PROTEIN,URINE POS 1+ (NEGATIVE); UROBILINOGEN,URINE 0.2 mg/dL (<=1.0)
[2021-09-04 19:26] LABS: BACTERIA,URINE Moderate /HPF (None Seen); RBC,URINE 0-2 /HPF (0-2)
[2021-09-04] MEDS ORDERED: CEPHALEXIN MONOHYDRATE 500 MG CAPSULE PO ONE (19:30)
[2021-09-04] MEDS ORDERED: BISMUTH SUBSALICYLATE 524 MG/30 ML SUSPENSION UDCUP PO ONE (19:30)
[2021-09-04 19:39] LABS: PHENCYCLIDINE SCREEN,URINE NEGATIVE (NEGATIVE)
[2021-09-04 20:09] VITALS: BP 149/68
== END 2021-09-04 23:43 | disposition home or self-care (01) ==
LOC: EMS 14:16
DX: T83.038A Leakage of other urinary catheter, initial encounter (principal); N39.0 Urinary tract infection, site not specified; F41.9 Anxiety disorder, unspecified; I10 Essential (primary) hypertension; F32.9 Major depressive disorder, single episode, unspecified; F17.210 Nicotine dependence, cigarettes, uncomplicated; Z88.8 Allergy status to other drugs, medicaments and biological substances; Z79.899 Other long term (current) drug therapy; Z79.84 Long term (current) use of oral hypoglycemic drugs; Z20.822 Contact with and (suspected) exposure to COVID-19
CPT/HCPCS: 36415; 51702; 80053; 80307; 81001; 85025; 87086; 87426; 99285; G0480

== ENCOUNTER 2021-10-04 09:24 | Emergency (ER) | payer MEDICARE, MEDICAID ==
[~2021-10-04] VITALS: Ht 177.8 cm; Wt 118.2 kg
[2021-10-04 11:27] VITALS: BP 148/78
== END 2021-10-04 12:20 | disposition home or self-care (01) ==
LOC: EMS 09:27
DX: F41.9 Anxiety disorder, unspecified (principal); I10 Essential (primary) hypertension; E11.9 Type 2 diabetes mellitus without complications; F17.210 Nicotine dependence, cigarettes, uncomplicated; Z88.8 Allergy status to other drugs, medicaments and biological substances; Z79.84 Long term (current) use of oral hypoglycemic drugs; Z79.899 Other long term (current) drug therapy
CPT/HCPCS: 82962; 99283

== ENCOUNTER 2021-10-07 13:50 | Emergency (ER) | payer MEDICARE, MEDICAID ==
[~2021-10-07] VITALS: Ht 162.6 cm; Wt 127.5 kg
[2021-10-07 19:02] LABS: APPEARANCE,URINE CLEAR (CLEAR); BILIRUBIN,URINE NEGATIVE (NEGATIVE); GLUCOSE, URINE (UA) NEGATIVE (NEGATIVE); KETONES,URINE 15 mg/dL (NEGATIVE); LEUKOCYTE ESTERASE ,URINE LARGE (NEGATIVE); NITRATE,URINE NEGATIVE (NEGATIVE); OCCULT BLOOD,URINE SMALL (NEGATIVE); PROTEIN,URINE SEE CONFIRM (NEGATIVE); UROBILINOGEN,URINE 0.2 mg/dL (<=1.0)
[2021-10-07 19:16] LABS: BACTERIA,URINE Few /HPF (None Seen); SQUAMOUS EPITHELIAL CELL,UR Few /LPF (None Seen); SULFOSALICYLIC ACID,URINE 2+ (Negative); WBC,URINE 51-100 /HPF (0-5)
[2021-10-07] MEDS ORDERED: PHEN-846 PO (19:22)
[2021-10-07] MEDS ORDERED: CEPH500C3 PO (19:22)
[2021-10-07] MEDS ORDERED: CEPHALEXIN MONOHYDRATE 500 MG CAPSULE PO ONE (19:30)
[2021-10-07 20:06] VITALS: BP 124/75
== END 2021-10-07 23:30 | disposition home or self-care (01) ==
LOC: EMS 13:54
DX: T83.098A Other mechanical complication of other urinary catheter, initial encounter (principal); N39.0 Urinary tract infection, site not specified; F41.9 Anxiety disorder, unspecified; I10 Essential (primary) hypertension; E11.9 Type 2 diabetes mellitus without complications; F17.210 Nicotine dependence, cigarettes, uncomplicated; Z88.8 Allergy status to other drugs, medicaments and biological substances; Z79.899 Other long term (current) drug therapy; Z79.84 Long term (current) use of oral hypoglycemic drugs
CPT/HCPCS: 51702; 81001; 81002; 82962; 87086; 99284

== ENCOUNTER 2021-10-31 20:11 | Emergency (ER) | payer MEDICARE, MEDICAID ==
[~2021-10-31] VITALS: Ht 162.6 cm; Wt 116.0 kg
[~2021-10-31 20:11] MED LIST changes: +CEPH500C3 PO; +PHEN-846 PO
[2021-10-31 20:40] VITALS: BP 118/66
[2021-10-31 20:56] LABS: BASOPHILS % (AUTO) 0.3 % (0.0-2.0); EOSINOPHILS % (AUTO) 0.6 % (1.0-6.0); HEMATOCRIT 38.1 % (36-46); HEMOGLOBIN 12.8 g/dL (12.0-16.0); LYMPHOCYTES # (AUTO) 1.2 K/uL (1.0-4.8); LYMPHOCYTES % (AUTO) 21.4 % (22.0-44.0); MEAN CORPUSCULAR HEMOGLOBIN 28.7 pg (26.0-34.0); MEAN CORPUSCULAR HGB CONC 33.7 G/dL (31.0-37.0); MEAN CORPUSCULAR VOLUME 85 fL (80-100); MONOCYTES # (AUTO) 0.5 K/uL (0.1-1.0); NEUTROPHILS % (AUTO) 68.7 % (40.0-70.0); PLATELET COUNT (AUTO) 190 K/uL (150-450); RED BLOOD CELL COUNT(AUTO) 4.48 MIL/uL (4.00-5.20); RED CELL DISTRIBUTION WIDTH 13.4 % (11.5-14.5)
[2021-10-31 21:07] LABS: CALCIUM, TOTAL 9.1 mg/dL (8.8-10.5); CREATININE 1.05 mg/dL (0.60-1.30); POTASSIUM 4.2 mmol/L (3.5-5.1)
[2021-10-31 21:14] LABS: ALBUMIN 3.3 g/dL (3.4-5.0); BILIRUBIN,TOTAL 0.2 mg/dL (0.1-1.0); TOTAL PROTEIN, SERUM 6.5 g/dL (6.4-8.2)
[2021-10-31] MEDS ORDERED: LORazepam 1 MG TABLET PO ONE (23:30)
== END 2021-10-31 23:39 | disposition home or self-care (01) ==
LOC: EMS 20:57
DX: R53.1 Weakness (principal); E11.65 Type 2 diabetes mellitus with hyperglycemia; F32.9 Major depressive disorder, single episode, unspecified; I10 Essential (primary) hypertension; F41.9 Anxiety disorder, unspecified; F17.210 Nicotine dependence, cigarettes, uncomplicated; Z88.8 Allergy status to other drugs, medicaments and biological substances; Z79.84 Long term (current) use of oral hypoglycemic drugs; Z79.899 Other long term (current) drug therapy
CPT/HCPCS: 80053; 84484; 85025; 93005; 99284

== ENCOUNTER 2021-11-07 14:46 | Emergency (ER) | payer MEDICARE, MEDICAID ==
[~2021-11-07] VITALS: Ht 162.6 cm; Wt 115.5 kg
[2021-11-07 15:10] LABS: BASOPHILS % (AUTO) 0.3 % (0.0-2.0); EOSINOPHILS % (AUTO) 0.7 % (1.0-6.0); HEMATOCRIT 40.4 % (36-46); HEMOGLOBIN 13.6 g/dL (12.0-16.0); LYMPHOCYTES # (AUTO) 2.1 K/uL (1.0-4.8); LYMPHOCYTES % (AUTO) 29.7 % (22.0-44.0); MEAN CORPUSCULAR HEMOGLOBIN 28.5 pg (26.0-34.0); MEAN CORPUSCULAR HGB CONC 33.8 G/dL (31.0-37.0); MEAN CORPUSCULAR VOLUME 84 fL (80-100); MONOCYTES # (AUTO) 0.5 K/uL (0.1-1.0); MONOCYTES % (AUTO) 6.6 % (2.0-9.0); NEUTROPHILS # (AUTO) 4.4 K/uL (1.8-7.7); NEUTROPHILS % (AUTO) 62.7 % (40.0-70.0); PLATELET COUNT (AUTO) 211 K/uL (150-450); RED BLOOD CELL COUNT(AUTO) 4.78 MIL/uL (4.00-5.20); RED CELL DISTRIBUTION WIDTH 13.8 % (11.5-14.5)
[2021-11-07 15:24] LABS: ANION GAP 8 mmol/L (8-16); CALCIUM, TOTAL 9.1 mg/dL (8.8-10.5); CARBON DIOXIDE 31 mmol/L (22-29); CHLORIDE 105 mmol/L (98-107); CREATININE 0.72 mg/dL (0.60-1.30); GLOMERULAR FILTR. RATE CALC > 60 mL/min (>60); GLUCOSE,RANDOM 115 mg/dL (70-110); SODIUM SERUM 144 mmol/L (136-145); UREA NITROGEN, BLOOD 19 mg/dL (7-18)
[2021-11-07 15:31] LABS: ALANINE AMINOTRANSFERASE 17 U/L (12-78); ALBUMIN 3.3 g/dL (3.4-5.0); ALKALINE PHOSPHATASE 80 U/L (46-116); ASPARTATE AMINOTRANSFERASE 7 U/L (15-37); BILIRUBIN,TOTAL 0.2 mg/dL (0.1-1.0); CREATINE KINASE, TOTAL ONLY 45 U/L (26-192); LIPASE 24 U/L (73-393); TOTAL PROTEIN, SERUM 6.9 g/dL (6.4-8.2)
[2021-11-07 15:34] LABS: B-TYPE NATRIURETIC PEPTIDE 67 pg/mL (0-100)
[2021-11-07] MEDS ORDERED: MAGNESIUM SULFATE 1 GM in DEXTROSE 5%-WATER 50 ML IV ONE (16:00)
[2021-11-07 16:18] LABS: APPEARANCE,URINE CLOUDY (CLEAR); BILIRUBIN,URINE NEGATIVE (NEGATIVE); GLUCOSE, URINE (UA) NEGATIVE (NEGATIVE); OCCULT BLOOD,URINE TRACE (NEGATIVE); PH,URINE 8.5 (5.0-8.0); PROTEIN,URINE SEE CONFIRM (NEGATIVE)
[2021-11-07 16:19] LABS: KETONES,URINE TRACE mg/dL (NEGATIVE); LEUKOCYTE ESTERASE ,URINE MODERATE Leu/uL (NEGATIVE); NITRATE,URINE POSITIVE (NEGATIVE); UROBILINOGEN,URINE <=1.0 mg/dL (<=1.0)
[2021-11-07 16:21] LABS: BACTERIA,URINE Many /HPF (None Seen); RBC,URINE 0-2 /HPF (0-2); SQUAMOUS EPITHELIAL CELL,UR Few /LPF (None Seen); SULFOSALICYLIC ACID,URINE 1+ (Negative); WBC,URINE 26-50 /HPF (0-5)
[2021-11-07] MEDS ORDERED: CefTRIAXone 1 GM/DEXTROSE 50 ML IV ONE (17:15)
[2021-11-07] MEDS ORDERED: CEPH500C3 PO ×2 (19:05→21:04)
[2021-11-07] MEDS ORDERED: LACT1CAP65 PO (19:06)
[2021-11-07 20:00] VITALS: BP 141/80
[2021-11-07 20:16] LABS: APPEARANCE,URINE CLEAR (CLEAR); BILIRUBIN,URINE NEGATIVE (NEGATIVE); GLUCOSE, URINE (UA) NEGATIVE (NEGATIVE); KETONES,URINE NEGATIVE (NEGATIVE); LEUKOCYTE ESTERASE ,URINE TRACE Leu/uL (NEGATIVE); NITRATE,URINE NEGATIVE (NEGATIVE); OCCULT BLOOD,URINE NEGATIVE (NEGATIVE); PH,URINE 8.5 (5.0-8.0); PROTEIN,URINE 30-70 (NEGATIVE); UROBILINOGEN,URINE <=1.0 mg/dL (<=1.0)
[2021-11-07 20:41] LABS: BACTERIA,URINE None Seen /HPF (None Seen); RBC,URINE 0-2 /HPF (0-2)
== END 2021-11-07 21:00 | disposition home or self-care (01) ==
LOC: EMS 14:48
DX: N39.0 Urinary tract infection, site not specified (principal); I10 Essential (primary) hypertension; E11.9 Type 2 diabetes mellitus without complications; E78.00 Pure hypercholesterolemia, unspecified; F17.210 Nicotine dependence, cigarettes, uncomplicated; Z88.8 Allergy status to other drugs, medicaments and biological substances; Z79.899 Other long term (current) drug therapy; Z79.84 Long term (current) use of oral hypoglycemic drugs
CPT/HCPCS: 36415; 74177; 80053; 81001; 82550; 83690; 83735; 83880; 84484; 85025; 87086; 93005; 96365; 96366; 96367; 99285; J0696; J3475; J7060; 81002

== ENCOUNTER 2024-05-08 10:18 | Inpatient (IN) | payer MEDICARE, MEDICAID ==
[~2024-05-08] VITALS: Ht 165.1 cm; Wt 126.2 kg
[~2024-05-08 10:18] MED LIST changes: +ALBU18HF12 IH; -ALBU8HFA IH; +CEPH-558 PO; -CEPH500C3 PO; -FLUT16H NASAL; +FLUT16SP NASAL; -GLIP5 PO; +GLIP5TAB16 PO; +LACT1CAP65 PO; -OLAN20TA35 PO; +OLAN20TA82 PO
[2024-05-08] MEDS: LORazepam 2 MG TABLET PO ONE (11:18)
[2024-05-08 12:09] LABS: COVID AG,FIA SOURCE NASAL SWAB
[2024-05-08] MEDS ORDERED: QUEtiapine FUMARATE 100 MG TABLET PO PRN (13:00)
[2024-05-08 13:21] LABS: SARS-COV2 (COVID) ANTIGEN,FIA Negative (Negative)
[2024-05-08 14:38] LABS: BASOPHILS % (AUTO) 0.4 % (0.0-2.0); EOSINOPHILS % (AUTO) 0.5 % (1.0-6.0); HEMATOCRIT 42.8 % (36-46); HEMOGLOBIN 13.8 g/dL (12.0-16.0); LYMPHOCYTES # (AUTO) 1.5 K/uL (1.0-4.8); LYMPHOCYTES % (AUTO) 18.7 % (22.0-44.0); MEAN CORPUSCULAR HEMOGLOBIN 26.8 pg (26.0-34.0); MEAN CORPUSCULAR HGB CONC 32.2 G/dL (31.0-37.0); MEAN CORPUSCULAR VOLUME 83 fL (80-100); MONOCYTES # (AUTO) 0.5 K/uL (0.1-1.0); MONOCYTES % (AUTO) 6.4 % (2.0-9.0); NEUTROPHILS # (AUTO) 5.9 K/uL (1.8-7.7); PLATELET COUNT (AUTO) 274 K/uL (150-450); RED BLOOD CELL COUNT(AUTO) 5.14 MIL/uL (4.00-5.20); WHITE BLOOD COUNT (AUTO) 7.9 K/uL (4.5-11.0)
[2024-05-08 14:51] LABS: ALCOHOL, BLOOD (SERUM) < 3 mg/dL (0-10); ANION GAP 9 mmol/L (8-16); CALCIUM, TOTAL 8.7 mg/dL (8.8-10.5); CARBON DIOXIDE 27 mmol/L (22-29); CHLORIDE 99 mmol/L (98-107); CREATININE 0.63 mg/dL (0.60-1.30); GLOMERULAR FILTR. RATE CALC > 60 mL/min (>60); GLUCOSE,RANDOM 392 mg/dL (70-110); POTASSIUM 4.1 mmol/L (3.5-5.1); SODIUM SERUM 135 mmol/L (136-145); UREA NITROGEN, BLOOD 9 mg/dL (7-18)
[2024-05-08] MEDS: DOCUSATE SODIUM 100 MG CAPSULE PO ONE (14:53)
[2024-05-08 14:57] LABS: TROPONIN I-HIGH SENSITIVITY 6 ng/L (<51)
[2024-05-08] MEDS: INSULIN REGULAR, HUMAN 100 UNITS/ML SQ ONE (17:29)
[2024-05-08] MEDS: LORazepam 2 MG TABLET PO PRN (17:30)
[2024-05-08 17:52] LABS: APPEARANCE,URINE CLEAR (CLEAR); BILIRUBIN,URINE NEGATIVE (NEGATIVE); COLOR,URINE LIGHT YELLOW (YELLOW); GLUCOSE, URINE (UA) >=1000 mg/dL (NEGATIVE); KETONES,URINE 40-60 mg/dL (NEGATIVE); LEUKOCYTE ESTERASE ,URINE MODERATE (NEGATIVE); NITRATE,URINE NEGATIVE (NEGATIVE); OCCULT BLOOD,URINE NEGATIVE (NEGATIVE); PH,URINE 5.5 (5.0-8.0); PH,URINE DRUG SCREEN 5.5 (5.0-8.0); PROTEIN,URINE TRACE mg/dL (NEGATIVE); SPECIFIC GRAVITIY, URINE 1.045 (1.003-1.030); UROBILINOGEN,URINE <=1.0 mg/dL (<=1.0)
[2024-05-08 18:00] LABS: ALCOHOL, URINE DRUG SCREEN NEGATIVE (NEGATIVE); AMPHET/METH SCREEN,URINE NEGATIVE (NEGATIVE); BARBITURATE SCREEN, URINE NEGATIVE (NEGATIVE); BENZODIAZEPINES SCREEN,URINE NEGATIVE (NEGATIVE); CANNABINOID SCREEN,URINE NEGATIVE (NEGATIVE); COCAINE SCREEN,URINE NEGATIVE (NEGATIVE); METHADONE SCREEN, URINE NEGATIVE (NEGATIVE); OPIATE SCREEN,URINE NEGATIVE (NEGATIVE); PHENCYCLIDINE SCREEN,URINE NEGATIVE (NEGATIVE)
[2024-05-08 18:11] LABS: BACTERIA,URINE Few /HPF (None Seen); RBC,URINE None Seen /HPF (0-2)
[2024-05-08 18:12] LABS: SQUAMOUS EPITHELIAL CELL,UR Few /LPF (None Seen)
[2024-05-08 18:14] VITALS: BP 150/81; PULSE 81; RESP 18; TEMP 98; O2SAT 81
[2024-05-08 20:29] VITALS: RESP 18
[2024-05-08 20:31] VITALS: RESP 18
[2024-05-09 09:49] VITALS: BP 153/70; PULSE 83; RESP 19; TEMP 97.8; O2SAT 96
[2024-05-09 09:55] VITALS: BP 153/70; PULSE 83; RESP 19; TEMP 97.8; O2SAT 96
[2024-05-09] MEDS ORDERED: MAGNESIUM HYDROXIDE SUSPENSION 30 ML UDCUP PO PRN (14:15)
[2024-05-09] MEDS ORDERED: ALBUTEROL SULFATE HFA 90 MCG/PUFF 8 GM INHALER IH PRN (14:15)
[2024-05-09] MEDS ORDERED: ACETAMINOPHEN 325 MG TABLET PO PRN (14:15)
[2024-05-09] MEDS ORDERED: GuaiFENesin/D-METHORPHAN [SUGAR-FREE] 200-20MG/10 ML SYRUP UDCUP PO PRN (14:15)
[2024-05-09] MEDS ORDERED: MAG HYDROX/ALUMINUM HYD/SIMETH ES 30 ML SUSPENSION UDCUP PO PRN (14:15)
[2024-05-09] MEDS ORDERED: NICOTINE 14 MG/24 HOUR PATCH TD PRN (14:15)
[2024-05-09] MEDS ORDERED: PETROLATUM,WHITE 28 GM JELLY TP PRN (14:15)
[2024-05-09] MEDS ORDERED: CloNIDine HCL 0.1 MG TABLET PO PRN (14:15)
[2024-05-09] MEDS: MetFORMIN HCL 500 MG TABLET PO SCH (16:31)
[2024-05-09] MEDS: GlipiZIDE 5 MG TABLET PO SCH (16:31)
[2024-05-09] MEDS: GABAPENTIN 300 MG CAPSULE PO SCH (16:32)
[2024-05-09] MEDS: METOPROLOL TARTRATE 25 MG TABLET PO SCH (16:32)
[2024-05-09] MEDS: CEPHALEXIN MONOHYDRATE 250 MG CAPSULE PO SCH (16:33)
[2024-05-09] MEDS: FLUTICASONE PROPIONATE 50 MCG/SPRAY 16 GM NASAL SPRAY NASAL SCH (16:34)
[2024-05-09] MEDS: QUEtiapine FUMARATE 100 MG TABLET PO SCH (18:00)
[2024-05-09] MEDS: DIVALPROEX SODIUM 125 MG DR CAPSULE PO SCH (18:00)
[2024-05-09] MEDS: ESCITALOPRAM OXALATE 20 MG TABLET PO SCH (18:33)
[2024-05-09 21:08] VITALS: RESP 18
[2024-05-09] MEDS: LOPERAMIDE HCL 2 MG CAPSULE PO PRN (21:39)
[2024-05-09] MEDS: ZOLPIDEM TARTRATE 10 MG TABLET PO PRN (21:39)
[2024-05-09] MEDS: TraZODone HCL 50 MG TABLET PO SCH (21:39)
[2024-05-10 10:35] VITALS: BP 165/78; PULSE 90; RESP 18; TEMP 97.8; O2SAT 96
[2024-05-10] MEDS: FUROSEMIDE 20 MG TABLET PO SCH (11:20)
[2024-05-10] MEDS: CETIRIZINE HCL 10 MG TABLET PO SCH (11:25)
[2024-05-10] MEDS: CEPHALEXIN MONOHYDRATE 500 MG CAPSULE PO SCH (17:00)
[2024-05-10 20:20] VITALS: BP 145/61; PULSE 72; RESP 18; TEMP 97.3; O2SAT 97
[2024-05-11 11:24] VITALS: BP 135/51; PULSE 101; RESP 18; TEMP 97.8; O2SAT 98
[2024-05-11 13:15] VITALS: BP 138/63; PULSE 92; RESP 17; TEMP 97.7; O2SAT 97
[2024-05-11] MEDS: IBUPROFEN 400 MG TABLET PO PRN (13:17)
[2024-05-11] MEDS: ONDANSETRON 4 MG TABLET PO PRN (17:59)
[2024-05-11 18:08] VITALS: BP 142/73; PULSE 98; RESP 18; O2SAT 99
[2024-05-11 21:24] VITALS: BP 130/62; PULSE 89; RESP 18; TEMP 97.9; O2SAT 98
[2024-05-12 08:39] VITALS: BP 149/99; PULSE 71; RESP 18; O2SAT 95
[2024-05-12 12:31] LABS: CHOL/HDL RATIO 5.1 (3.9-5.7); THYROID STIMULATING HORMONE 0.54 uIU/mL (0.36-3.74)
[2024-05-12 13:28] VITALS: BP 143/86; PULSE 82; RESP 18; O2SAT 97
[2024-05-12 16:45] VITALS: BP 134/68; PULSE 87; RESP 17; TEMP 97.8; O2SAT 96
[2024-05-12] MEDS: DOCUSATE SODIUM 100 MG CAPSULE PO PRN (17:32)
[2024-05-12 20:49] VITALS: RESP 18
[2024-05-13 09:36] VITALS: BP 176/84; PULSE 75; RESP 17; TEMP 97.7; O2SAT 95
[2024-05-13 13:18] VITALS: RESP 18
[2024-05-13 14:17] VITALS: RESP 18
[2024-05-13] MEDS ORDERED: ATORVASTATIN CALCIUM 20 MG TABLET PO SCH (21:00)
== END 2024-05-13 17:45 | DRG 885 ==
LOC: EMS 10:18 → 3EI 16:19
PROVIDERS: ADMIT Psychiatry & Neurology Psychiatry; ATTEND Psychiatry & Neurology Psychiatry
PROC: GZHZZZZ Group Psychotherapy (ICD-10-PCS; principal; 2024-05-09)
PROC: GZ51ZZZ Individual Psychotherapy, Behavioral (ICD-10-PCS; 2024-05-09)
DX: F25.1 Schizoaffective disorder, depressive type (principal); I11.0 Hypertensive heart disease with heart failure; E11.65 Type 2 diabetes mellitus with hyperglycemia; N39.0 Urinary tract infection, site not specified; Z68.42 Body mass index [BMI] 45.0-49.9, adult; Z20.822 Contact with and (suspected) exposure to COVID-19; E66.9 Obesity, unspecified; I50.9 Heart failure, unspecified; E78.00 Pure hypercholesterolemia, unspecified; G47.00 Insomnia, unspecified; Z87.891 Personal history of nicotine dependence; Z79.899 Other long term (current) drug therapy; Z91.148 Patient's other noncompliance with medication regimen for other reason
CPT/HCPCS: 51701; 80048; 80061; 80307; 81001; 83036; 84443; 84484; 85025; 87081; 87086; 87186; 99285; G0480; J1815; Q0162